=== PATIENT | female | born 1955 | race Caucasian/White ===

== ENCOUNTER 2018-09-20 09:36 | Emergency (ER) | payer OTHER, SELFPAY ==
[2018-09-20] MEDS ORDERED: ACETAMINOPHEN 325 MG TABLET ONE (11:03)
[2018-09-20 11:22] LABS: Absolute Lymphocytes (CBC) 0.8 K/uL (0.7-4.9); Absolute Monocytes 0.8 K/uL (0.1-1.3); Absolute Neutrophil 4.8 K/uL (1.8-8.0); Basophils % 0.7 % (0-1.3); Hematocrit 43.3 % (36.0-45.0); Lymphocytes % 12.5 % (15.3-44.8); MPV 7.8 fL (7.6-11.3); Monocytes % 11.9 % (3.3-12.3); RBC Red Blood Cell Count 4.78 M/uL (3.86-4.86)
[2018-09-20 11:37] LABS: Albumin 3.3 g/dL (3.4-5.0); Bilirubin Total 0.9 mg/dL (0.2-1.0); Potassium 3.4 mmol/L (3.5-5.1); Protein, Total 7.3 g/dL (6.4-8.2)
--- NOTE | 2018-09-20 11:56 | RAD REPORT ---
EXAM DESCRIPTION: RAD - Chest Pa And Lat (2 Views) - 09/20/2018 10:54 am CLINICAL HISTORY: cough, fever Chest pain. COMPARISON: CHEST SINGLE VIEW dated 05/06/2014; CHEST SINGLE VIEW dated 03/01/2009 FINDINGS: Mild patchy airspace opacity is present in the lingula, compatible with pneumonia. The hea rt is mildly prominent in size. No displaced fractures. IMPRESSION: Lingular pneumonia.
[2018-09-20] MEDS ORDERED: LEVALBUTEROL 1.25 MG/3 ML NEB ONE (12:38)
--- NOTE | 2018-09-20 12:38 | ER ---
Nurse's Notes [facility] Name: Cathy Romero Age: 62 yrs Sex: Female : 1955 Arrival Date: 09/20/2018 Time: 09:39 Bed 6 Private MD: Diagnosis: Pneumonia Presentation: 09/20 10:12 Presenting complaint: Patient states: on antibiotics (Augmentin) for URI since Friday, iw still having low grade fever, productive cough, was told by Dr. Benton to be evaluated in ER for possible pneumonia. Transition of care: patient was not received from another setting of care. Onset of symptoms was September 14, 2018. Risk Assessment: Do you want to hurt yourself or someone else? Patient reports no desire to harm self or others. Initial Sepsis Screen: Does the patient meet any 2 criteria? HR > 90 bpm. Does the patient have a suspected source of infection? Yes: Productive cough/pneumonia. Care prior to arrival: None. 10:12 Method Of Arrival: Ambulatory iw 10:12 Acuity: JAVAD 3 iw Historical: - Allergies: 10:16 No Known Allergies; iw - Home Meds: 10:16 lisinopril 10 mg Oral tab 1 tab once daily [Active]; sertraline 50 mg oral tab 1 tab iw once daily [Active]; bupropion HCl 100 mg Oral tab daily [Active]; - PMHx: 10:16 Hypertension; Anxiety; Depression; iw - PSHx: 10:16 Hernia repair; cyst removed from breast; iw - Immunization history:: Adult Immunizations up to date. - Social history:: Smoking status: Patient/guardian denies using tobacco. - Ebola Screening: : Patient negative for fever greater than or equal to 101.5 degrees Fahrenheit, and additional compatible Ebola Virus Disease symptoms Patient denies exposure to infectious person Patient denies travel to an Ebola-affected area in the 21 days before illness onset No symptoms or risks identified at this time. Screenin:00 Abuse screen: Denies threats or abuse. Denies injuries from another. Nutritional hb screening: No deficits noted. Tuberculosis screening: No symptoms or risk factors identified. Fall Risk None identified. Assessment: 11:00 General: Appears in no apparent distress. Behavior is calm, cooperative. Pain: Pain hb currently is 3 out of 10 on a pain scale. Neuro: Level of Consciousness is awake, alert, obeys commands, Oriented to person, place, time, situation. Cardiovascular: Heart tones S1 S2 present Capillary refill < 3 seconds Patient's skin is warm and dry. Respiratory: Airway is patent Respiratory effort is even, unlabored, Respiratory pattern is regular, symmetrical, Breath sounds with rhonchi Breath sounds with wheezes bilaterally. GI: No signs and/or symptoms were reported involving the gastrointestinal system. : No signs and/or symptoms were reported regarding the genitourinary system. EENT: No signs and/or symptoms were reported regarding the EENT system. Derm: Skin is intact, is healthy with good turgor, Skin is pink, warm \T\ dry. Musculoskeletal: No signs and/or symptoms reported regarding the musculoskeletal system. 11:58 Reassessment: Patient appears in no apparent distress at this time. Patient and/or hb family updated on plan of care and expected duration. Pain level reassessed. Patient is alert, oriented x 3, equal unlabored respirations, skin warm/dry/pink. 12:35 Reassessment: Patient appears in no apparent distress at this time. Patient and/or hb family updated on plan of care and expected duration. Pain level reassessed. Patient is alert, oriented x 3, equal unlabored respirations, skin warm/dry/pink. Vital Signs: 10:14 BP 155 / 74; Pulse 105; Resp 18 S; Temp 99.8(TE); Pulse Ox 96% on R/A; Weight 64.41 kg; iw Height 5 ft. 6 in. (167.64 cm); 11:00 BP 132 / 83; Pulse 94; Resp 17; Pulse Ox 95% on R/A; hb 11:59 BP 134 / 82; Pulse 88; Resp 16; Pulse Ox 99% on R/A; hb 10:14 Body Mass Index 22.92 (64.41 kg, 167.64 cm) iw ED Course: 09:39 Patient arrived in ED. tw3 10:07 Jordan Farooq PA is PHCP. jmm 10:07 Dave Alcaraz MD is Attending Physician. jmm 10:12 Cristal Ashley, RN is Primary Nurse. ph 10:14 Triage completed. iw 10:14 Arm band placed on. iw 10:50 Chest Pa And Lat (2 Views) XRAY In Process Unspecified. EDMS 11:00 Patient has correct armband on for positive identification. Bed in low position. Call hb light in reach. Side rails up X 1. 11:06 Inserted saline lock: 22 gauge in right antecubital area, using aseptic technique. hb Blood collected. 11:22 Primary Nurse role handed off by Cristal Ashley RN hb 11:22 Tanisha Payan, RN is Primary Nurse. hb 13:04 No provider procedures requiring assistance completed. IV discontinued, intact, hb bleeding controlled, No redness/swelling at site. Pressure dressing applied. Administered Medications: 11:02 Drug: Tylenol 650 mg Route: PO; hb 12:00 Follow up: Response: No adverse reaction hb 12:29 Drug: Xopenex (3) 1.25 mg Route: Inhalation; hb 12:57 Follow up: Response: No adverse reaction; Medication administered at discharge. hb Outcome: 12:38 Discharge ordered by . m 13:04 Discharged to home ambulatory. hb 13:04 Condition: stable 13:04 Discharge instructions given to patient, Instructed on discharge instructions, follow up and referral plans. medication usage, Demonstrated understanding of instructions, follow-up care, medications, Prescriptions given X 2. 13:04 Patient left the ED. hb Signatures: Dispatcher [employer] EDMS Jordan Farooq PA PA jmm Williams, Irene, RN RN Cristal Ashley, DANIEL RN Tanisha Payan RN RN Leny Kenney tw3 Corrections: (The following items were deleted from the chart) 12:36 11:59 BP 132 / 83; Pulse 88bpm; Resp 16bpm; Pulse Ox 99% RA; hb hb
--- NOTE | 2018-09-20 12:38 | EDPHYS ---
Physician Documentation [facility] Name: Cathy Romero Age: 62 yrs Sex: Female : 1955 Arrival Date: 09/20/2018 Time: 09:39 Bed 6 Private MD: ED Physician Dave Alcaraz HPI: 09/20 10:38 This 62 yrs old Female presents to ER via Ambulatory with complaints of jmm Cough,Fever. 10:38 The patient or guardian reports cough. Onset: The symptoms/episode began/occurred jmm gradually, 5 day(s) ago. Modifying factors: The symptoms are alleviated by nothing. the symptoms are aggravated by nothing. This is a 62 year old female with a history of htn that presents to the ED with complaints of cough, fever, body aches beginning 5 days ago. Patient has been taking Augmentin with no relief. . Historical: - Allergies: 10:16 No Known Allergies; iw - Home Meds: 10:16 lisinopril 10 mg Oral tab 1 tab once daily [Active]; sertraline 50 mg oral tab 1 tab iw once daily [Active]; bupropion HCl 100 mg Oral tab daily [Active]; - PMHx: 10:16 Hypertension; Anxiety; Depression; iw - PSHx: 10:16 Hernia repair; cyst removed from breast; iw - Immunization history:: Adult Immunizations up to date. - Social history:: Smoking status: Patient/guardian denies using tobacco. - Ebola Screening: : Patient negative for fever greater than or equal to 101.5 degrees Fahrenheit, and additional compatible Ebola Virus Disease symptoms Patient denies exposure to infectious person Patient denies travel to an Ebola-affected area in the 21 days before illness onset No symptoms or risks identified at this time. ROS: 10:38 Cardiovascular: Negative for chest pain, palpitations, and edema. jmm 10:38 Back: Negative for injury and pain, MS/Extremity: Negative for injury and deformity, Skin: Negative for injury, rash, and discoloration. 10:38 Constitutional: Positive for body aches, chills, fever. 10:38 Respiratory: Positive for cough. 10:38 All other systems are negative. Exam: 10:38 Head/Face: atraumatic. Eyes: EOMI, no conjunctival erythema appreciated ENT: Moist jmm Mucus Membranes Neck: Trachea midline, Supple Chest/axilla: Normal chest wall appearance and motion. 10:38 Abdomen/GI: Non distended, soft Back: Normal ROM Skin: General appearance color normal MS/ Extremity: Moves all extremities, no obvious deformities appreciated, no edema noted to the lower extremities Neuro: Awake and alert, normal gait 10:38 Constitutional: The patient appears in no acute distress, alert, awake. 10:38 Cardiovascular: Rate: normal, Rhythm: regular. 10:38 Respiratory: the patient does not display signs of respiratory distress, Respirations: normal, Breath sounds: wheezing: that is mild, is scattered. Vital Signs: 10:14 BP 155 / 74; Pulse 105; Resp 18 S; Temp 99.8(TE); Pulse Ox 96% on R/A; Weight 64.41 kg; iw Height 5 ft. 6 in. (167.64 cm); 11:00 BP 132 / 83; Pulse 94; Resp 17; Pulse Ox 95% on R/A; hb 11:59 BP 134 / 82; Pulse 88; Resp 16; Pulse Ox 99% on R/A; hb 10:14 Body Mass Index 22.92 (64.41 kg, 167.64 cm) iw MDM: 10:[address] [facility] 12:34 Data reviewed: vital signs, nurses notes. Counseling: I had a detailed discussion with raven the patient and/or guardian regarding: the historical points, exam findings, and any diagnostic results supporting the discharge/admit diagnosis, lab results, radiology results, the need for outpatient follow up, to return to the emergency department if symptoms worsen or persist or if there are any questions or concerns that arise at home. ED course: Patient is alert and non toxic in appearance in the ED. Patient is non hypoxic. No signs of resp distress appreciated in the ED. Patient is advised to follow up with pcp and otherwise given strict return precautions. Patient is otherwise given strict return precautions. Patient understood and agrees with the plan of care. . 09/20 10:34 Order name: Flu; Complete Time: 11:27 [facility] 09/20 10:35 Order name: CBC with Diff; Complete Time: 11:24 [facility] 09/20 10:34 Order name: Chest Pa And Lat (2 Views) XRAY; Complete Time: 12:15 [facility] 09/20 10:35 Order name: CMP; Complete Time: 11:43 [facility] 09/20 10:35 Order name: Procalcitonin; Complete Time: 11:59 [facility] 09/20 10:35 Order name: Saline Lock; Complete Time: 11:11 [facility] Administered Medications: 11:02 Drug: Tylenol 650 mg Route: PO; hb 12:00 Follow up: Response: No adverse reaction hb 12:29 Drug: Xopenex (3) 1.25 mg Route: Inhalation; hb 12:57 Follow up: Response: No adverse reaction; Medication administered at discharge. hb Disposition: 09/20/18 12:38 Discharged to Home. Impression: Pneumonia. - Condition is Stable. - Discharge Instructions: Community-Acquired Pneumonia, Adult. - Prescriptions for Zithromax Z- [place] 250 mg Oral Tablet - take 1 tablet by ORAL route as directed for 5 days Day 1 - take two (2) tablets one time. Day 2, 3, 4 , 5 take one (1) tablet once daily.; 6 tablet. Albuterol Sulfate 90 mcg/actuation - inhale 1-2 puff by INHALATION route every 4-6 hours; 1 Inhaler. - Medication Reconciliation Form, Thank You Letter, Antibiotic Education, Prescription Opioid Use form. - Follow up: Private Physician; When: 2 - 3 days; Reason: Recheck today's complaints, Continuance of care, Re-evaluation by your physician. Addendum: 09/24/2018 20:34 Co-signature as Attending Physician, Dave Alcaraz MD. g s Signatures: Dispatcher [employer] EDMS Jordan Farooq PA PA [facility] Sindi Hoang RN RN Tanisha Payan RN RN Dave Alcaraz MD MD Corrections: (The following items were deleted from the chart) 09/20 13:04 12:38 09/20/2018 12:38 Discharged to Home. Impression: Pneumonia. Condition is Stable. hb Forms are Medication Reconciliation Form, Thank You Letter, Antibiotic Education, Prescription Opioid Use. Follow up: Private Physician; When: 2 - 3 days; Reason: Recheck today's complaints, Continuance of care, Re-evaluation by your physician. [facility]
[2018-09-20 14:34] VITALS: TEMP 99.8
[2018-09-20 14:37] VITALS: BP 134/82; O2SAT 99
== END 2018-09-20 13:04 | disposition home or self-care (01) ==
LOC: ER 09:36
DX: J18.9 Pneumonia, unspecified organism (principal); I10 Essential (primary) hypertension; F41.9 Anxiety disorder, unspecified; F32.9 Major depressive disorder, single episode, unspecified
CPT/HCPCS: 36415; 71046; 80053; 84145; 85025; 87804; 99284

== ENCOUNTER 2018-09-23 09:50 | Emergency (ER) | payer SELFPAY ==
--- NOTE | 2018-09-23 10:55 | RAD REPORT ---
EXAM DESCRIPTION: RAD - Chest Pa And Lat (2 Views) - 09/23/2018 10:34 am CLINICAL HISTORY: COUGH Chest pain. COMPARISON: Chest Pa And Lat (2 Views) dated 09/20/2018; CHEST SINGLE VIEW dated 05/06/2014; CHEST SING LE VIEW dated 03/01/2009 FINDINGS: Ill-defined lingular opacity is again noted, but less prominent than on the recent compara tive chest radiograph. The heart is mildly prominent in size. No displaced fractures. IMPRESSION: Mild lingular infiltrate appears less prominent than on the comparative study.
[2018-09-23 11:15] LABS: Absolute Monocytes 0.4 K/uL (0.1-1.3); Absolute Neutrophil 3.7 K/uL (1.8-8.0); Basophils % 0.7 % (0-1.3); Eosinophils % 1.3 % (0-4.4); Hematocrit 41.4 % (36.0-45.0); RBC Red Blood Cell Count 4.59 M/uL (3.86-4.86)
[2018-09-23] MEDS ORDERED: Levofloxacin500mg IV 500 MG/100 ML BAG IV ONE (11:28)
[2018-09-23] MEDS ORDERED: IPRATROPIUM BROM 0.5MG/2.5ML ONE (11:28)
[2018-09-23] MEDS ORDERED: ALBUTEROL 2.5 MG/3 ML NEB SOL ONE (11:28)
[2018-09-23 11:33] LABS: Potassium 3.6 mmol/L (3.5-5.1)
--- NOTE | 2018-09-23 13:11 | ER ---
Nurse's Notes [facility] Name: Cathy Romero Age: 62 yrs Sex: Female : 1955 Arrival Date: 09/23/2018 Time: 09:54 Bed 4 Private MD: Verónica Benton K Diagnosis: Pneumonia, unspecified organism Presentation: 09/23 10:19 Presenting complaint: Patient states: sent by PCP for possible failed outpatient ss therapy for pneumonia. Transition of care: patient was not received from another setting of care. Onset of symptoms was September 15, 2018. Risk Assessment: Do you want to hurt yourself or someone else? Patient reports no desire to harm self or others. Initial Sepsis Screen: Does the patient meet any 2 criteria? No. Patient's initial sepsis screen is negative. Does the patient have a suspected source of infection? No. Patient's initial sepsis screen is negative. Care prior to arrival: None. 10:19 Method Of Arrival: Ambulatory ss 10:19 Acuity: JAVAD 3 ss Historical: - Allergies: 10:56 No Known Drug Allergies; ph - Home Meds: 10:56 bupropion HCl 100 mg Oral tab daily [Active]; lisinopril 10 mg Oral tab 1 tab once ph daily [Active]; sertraline 50 mg Oral tab 1 tab once daily [Active]; - PMHx: 10:56 Anxiety; Depression; Hypertension; ph - PSHx: 10:56 Hernia repair; cyst removed from breast; ph - Immunization history:: Adult Immunizations unknown. - Social history:: Smoking status: Patient/guardian denies using tobacco. - Ebola Screening: : No symptoms or risks identified at this time. Screenin:54 Abuse screen: Denies threats or abuse. Denies injuries from another. Nutritional ph screening: No deficits noted. Tuberculosis screening: No symptoms or risk factors identified. Fall Risk None identified. Assessment: 10:45 General: Appears in no apparent distress. comfortable, slender, well groomed, Behavior ph is calm, cooperative, appropriate for age, Reports fatigue for >3 days, Denies fever. Pain: Denies pain. Neuro: Level of Consciousness is awake, alert, obeys commands, Oriented to person, place, time, situation. Cardiovascular: Capillary refill < 3 seconds in bilateral fingers Patient's skin is warm and dry. Respiratory: Reports shortness of breath on exertion cough that is productive, Airway is patent Respiratory effort is even, unlabored, Respiratory pattern is regular, symmetrical. GI: Patient currently denies abdominal pain, diarrhea, nausea, vomiting. Derm: Skin is intact, is healthy with good turgor, Skin is pink, warm \T\ dry. Musculoskeletal: Circulation, motion, and sensation intact. Range of motion: intact in all extremities. 11:34 Reassessment: Patient appears in no apparent distress at this time. Patient and/or ph family updated on plan of care and expected duration. Pain level reassessed. Patient is alert, oriented x 3, equal unlabored respirations, skin warm/dry/pink. Pt resting quietly, VSS, awaiting lab results, family at bedside. 12:41 Reassessment: Patient appears in no apparent distress at this time. Patient and/or ph family updated on plan of care and expected duration. Pain level reassessed. Patient is alert, oriented x 3, equal unlabored respirations, skin warm/dry/pink. 14:03 Reassessment: Patient appears in no apparent distress at this time. Patient and/or ph family updated on plan of care and expected duration. Pain level reassessed. Patient is alert, oriented x 3, equal unlabored respirations, skin warm/dry/pink. ERP at bedside to speak w/ pt, pt d/c home w/ prescription for Levaquin, states that she will temporarily stop home meds that may cause adverse reaction, instructed to return for ED if symptoms worsen, ambulatory upon d/c from ED w/ daughter. Vital Signs: 10:27 BP 161 / 82; Pulse 83; Resp 18; Pulse Ox 95% on R/A; em1 11:20 BP 152 / 72; Pulse 78; Resp 18; Pulse Ox 96% on R/A; ph 11:29 Temp 97.1(A); ss 12:40 BP 148 / 76; Pulse 85; Resp 18; Temp 97.4(TE); Pulse Ox 96% on R/A; ph 14:05 BP 151 / 76; Pulse 87; Resp 18; Temp 97.8; Pulse Ox 95% on R/A; ph ED Course: 09:54 Patient arrived in ED. dl4 09:55 Verónica Benton MD is Private Physician. dl4 09:57 Lawanda Hopkins FNP-C is [facility]. kb 09:57 Hugh Guthrie MD is Attending Physician. kb 10:19 Arm band placed on right wrist. ss 10:21 Triage completed. ss 10:33 Chest Pa And Lat (2 Views) XRAY In Process Unspecified. EDMS 10:54 Cristal Ashley, RN is Primary Nurse. ph 10:57 Patient has correct armband on for positive identification. Placed in gown. Bed in low ph position. Call light in reach. Side rails up X2. Pulse ox on. NIBP on. Door closed. Noise minimized. Warm blanket given. 10:57 Inserted saline lock: 20 gauge in right forearm, using aseptic technique. ph 13:11 Verónica Benton MD is Referral Physician. kb 14:02 No provider procedures requiring assistance completed. IV discontinued, intact, ph bleeding controlled, No redness/swelling at site. Pressure dressing applied. Administered Medications: 11:23 Drug: LevaQUIN 500 mg Volume: 100 ml; Route: IVPB; Infused Over: 60 mins; Site: right ph forearm; 12:22 Follow up: Response: No adverse reaction; IV Status: Completed infusion; IV Intake: ph 100ml 11:24 Drug: Albuterol 2.5 mg Route: Inhalation; ph 12:22 Follow up: Response: No adverse reaction ph 11:24 Drug: AtroVENT Aerosol 0.5 mg Route: Inhalation; ph 12:22 Follow up: Response: No adverse reaction ph Intake: 12:22 IV: 100ml; Total: 100ml. ph Outcome: 13:11 Discharge ordered by . kb 14:03 Discharged to home ambulatory, with family. ph 14:03 Condition: good 14:03 Discharge instructions given to patient, Instructed on discharge instructions, follow up and referral plans. medication usage, Demonstrated understanding of instructions, follow-up care, medications, Prescriptions given X 1. 14:07 Patient left the ED. ph Signatures: Dispatcher [employer] EDNJ Lawanda Hopkins FNP-C FNP-Ckb Martinez, Eric em1 Naz Leonardo, DANIEL RN Cristal Ashley, DANIEL RN Shakeel Lopez dl4
--- NOTE | 2018-09-23 13:12 | EDPHYS ---
Physician Documentation [facility] Name: Cathy Romero Age: 62 yrs Sex: Female : 1955 Arrival Date: 09/23/2018 Time: 09:54 Bed 4 Private MD: Verónica Benton K ED Physician Hugh Guthrie HPI: 09/23 11:32 This 62 yrs old Female presents to ER via Ambulatory with complaints of kb Cough, Chest Congestion. 11:32 The patient or guardian reports cough, that is intermittent, described as moderate, kb with productive sputum, difficulty breathing. Onset: The symptoms/episode began/occurred 8 day(s) ago. Severity of symptoms: At their worst the symptoms were moderate, in the emergency department the symptoms are unchanged. Modifying factors: The symptoms are alleviated by nothing, the symptoms are aggravated by nothing. Associated signs and symptoms: The patient has no apparent associated signs or symptoms. The patient has experienced similar episodes in the past. The patient has been recently seen by a physician: The patient has been recently seen at the [facility] Emergency Department. Pt reports she started with cold symptoms 8 days ago, got worse so she came to ER 4 days ago. Was diagnosed with pneumonia and given zithromax. States she hasn't gotten any better so went to her PCP today and was told to come to ER for possible admission.. Historical: - Allergies: 10:56 No Known Drug Allergies; ph - Home Meds: 10:56 bupropion HCl 100 mg Oral tab daily [Active]; lisinopril 10 mg Oral tab 1 tab once ph daily [Active]; sertraline 50 mg Oral tab 1 tab once daily [Active]; - PMHx: 10:56 Anxiety; Depression; Hypertension; ph - PSHx: 10:56 Hernia repair; cyst removed from breast; ph - Immunization history:: Adult Immunizations unknown. - Social history:: Smoking status: Patient/guardian denies using tobacco. - Ebola Screening: : No symptoms or risks identified at this time. ROS: 11:31 Constitutional: Negative for fever, chills, and weight loss, ENT: Negative for injury, kb pain, and discharge, Neck: Negative for injury, pain, and swelling, Cardiovascular: Negative for chest pain, palpitations, and edema, Abdomen/GI: Negative for abdominal pain, nausea, vomiting, diarrhea, and constipation, MS/Extremity: Negative for injury and deformity, Skin: Negative for injury, rash, and discoloration, Neuro: Negative for headache, weakness, numbness, tingling, and seizure. 11:31 Respiratory: Positive for cough, shortness of breath, wheezing, Negative for dyspnea on exertion, hemoptysis, orthopnea, pleurisy. Exam: 11:31 Constitutional: This is a well developed, well nourished patient who is awake, alert, kb and in no acute distress. Head/Face: Normocephalic, atraumatic. ENT: Nares patent. No nasal discharge, no septal abnormalities noted. Tympanic membranes are normal and external auditory canals are clear. Oropharynx with no redness, swelling, or masses, exudates, or evidence of obstruction, uvula midline. Mucous membranes moist. Neck: Trachea midline, no thyromegaly or masses palpated, and no cervical lymphadenopathy. Supple, full range of motion without nuchal rigidity, or vertebral point tenderness. No Meningismus. Chest/axilla: Normal chest wall appearance and motion. Nontender with no deformity. No lesions are appreciated. Cardiovascular: Regular rate and rhythm with a normal S1 and S2. No gallops, murmurs, or rubs. Normal PMI, no JVD. No pulse deficits. Abdomen/GI: Soft, non-tender, with normal bowel sounds. No distension or tympany. No guarding or rebound. No evidence of tenderness throughout. Skin: Warm, dry with normal turgor. Normal color with no rashes, no lesions, and no evidence of cellulitis. MS/ Extremity: Pulses equal, no cyanosis. Neurovascular intact. Full, normal range of motion. Neuro: Awake and alert, GCS 15, oriented to person, place, time, and situation. Cranial nerves II-XII grossly intact. Motor strength 5/5 in all extremities. Sensory grossly intact. Cerebellar exam normal. Normal gait. 11:31 Respiratory: the patient does not display signs of respiratory distress, Respirations: normal, Breath sounds: rhonchi, that are moderate, are heard in the left upper lobe, left lower lobe, left posterior upper lobe and left posterior lower lobe, wheezing: inspiratory that is moderate, is heard in the left upper lobe, left lower lobe, left posterior upper lobe and left posterior lower lobe. Vital Signs: 10:27 BP 161 / 82; Pulse 83; Resp 18; Pulse Ox 95% on R/A; em1 11:20 BP 152 / 72; Pulse 78; Resp 18; Pulse Ox 96% on R/A; ph 11:29 Temp 97.1(A); ss 12:40 BP 148 / 76; Pulse 85; Resp 18; Temp 97.4(TE); Pulse Ox 96% on R/A; ph 14:05 BP 151 / 76; Pulse 87; Resp 18; Temp 97.8; Pulse Ox 95% on R/A; ph MDM: 10:10 Patient medically screened. kb 11:31 Data reviewed: vital signs, nurses notes. Data interpreted: Pulse oximetry: on room air kb is 95 %. Interpretation: acceptable. 12:11 ED course: Daughter states she is concerned because pt is "extremely weak." Pt kb ambulated from lobby, to restroom and back to room without difficulty or shortness of breath. Daughter states "She just won't rest at home and I think she will get better faster if she is admitted." Pt wants to go home. Daughter educated that pneumonia is improving based on CBC and chest x-ray. . 12:38 ED course: Dr Benton called to give more information about pt. Pt has been on kb augmentin as well as zithromax, almost done with both. Dr Benton believes pt is getting worse. States there is not much else do to outpatient and would like pt to be admitted. I updated Dr Benton on improving results and that I am having Dr Guthrie evaluate pt at this time. Pt's oxygen saturation has been 96-100% on room air. No respiratory distress noted. No increased work of breathing. Inspiratory wheezing and expiratory rhonchi still noted to left lung. . 12:55 Counseling: I had a detailed discussion with the patient and/or guardian regarding: the kb historical points, exam findings, and any diagnostic results supporting the discharge/admit diagnosis, lab results, radiology results, the need for outpatient follow up, a family practitioner, to return to the emergency department if symptoms worsen or persist or if there are any questions or concerns that arise at home. ED course: Dr Guthrie evaluated pt as well. Agrees with outpatient treatment. Will prescribe Levaquin for 10 days. Pt does not want steroids due to anxiety. Pt is happy about going home. Pt educated to return for shortness of breath or any other concerns. Pt states "I never have had shortness of breath.". 13:24 ED course: Discussed possible interactions between levaquin, wellbutrin and zoloft with kb pt and daughter. Pt will hold wellbutrin and zoloft while on levaquin.. 14:02 ED course: Spoke with Dr. Benton who states doesn't want her admitted if she has rn improved, was concerned how she looked in clinic. Checked with Sally Ling, casework manager, who states would meet inpatient criteria given pneumonia has not resolved, spoke with patient and family again, offered them admission if they are apprehensive about going home, patient wants to go home, states feels better, and wants to go home, does not want to stay in hospital, family member who is a nurse is going to stay with her, and return precautions given and understood. Now ambulatory without assistance or dyspnea, does not report dyspnea currently, and has agreed to hold wellbutrin/zoloft while taking levaquin. Patient is very upbeat, hopping around, and smiling, states "let me go home". . 09/23 10:27 Order name: CBC with Diff; Complete Time: 11:24 kb 09/23 10:27 Order name: Basic Metabolic Panel; Complete Time: 11:36 kb 09/23 10:08 Order name: Chest Pa And Lat (2 Views) XRAY; Complete Time: 11:02 kb 09/23 10:27 Order name: Lactate; Complete Time: 11:36 kb 09/23 10:27 Order name: Procalcitonin; Complete Time: 12:05 kb 09/23 10:27 Order name: Blood Culture Adult (2) kb 09/23 10:27 Order name: IV Start; Complete Time: 11:09 kb Administered Medications: 11:23 Drug: LevaQUIN 500 mg Volume: 100 ml; Route: IVPB; Infused Over: 60 mins; Site: right ph forearm; 12:22 Follow up: Response: No adverse reaction; IV Status: Completed infusion; IV Intake: ph 100ml 11:24 Drug: Albuterol 2.5 mg Route: Inhalation; ph 12:22 Follow up: Response: No adverse reaction ph 11:24 Drug: AtroVENT Aerosol 0.5 mg Route: Inhalation; ph 12:22 Follow up: Response: No adverse reaction ph Disposition: 16:30 Co-signature as Attending Physician, Hugh Guthrie MD. rn Disposition: 09/23/18 13:11 Discharged to Home. Impression: Pneumonia, unspecified organism. - Condition is Stable. - Discharge Instructions: Community-Acquired Pneumonia, Adult, [id number]. - Prescriptions for Levaquin 500 mg Oral Tablet - take 1 tablet by ORAL route once daily for 10 days; 10 tablet. - Medication Reconciliation Form, Thank You Letter, Antibiotic Education, Prescription Opioid Use form. - Follow up: Emergency Department; When: As needed; Reason: Worsening of condition. Follow up: Verónica Benton MD; When: 2 - 3 days; Reason: Recheck today's complaints, Continuance of care, Re-evaluation by your physician. Signatures: Dispatcher [employer] EDCA Lawanda Hopkins, HYDROELECTRIC POWERPLANT SUPERVISOR-C HYDROELECTRIC POWERPLANT SUPERVISOR-Ckb Hugh Guthrie MD MD rn AshleyCristal RN RN ph Corrections: (The following items were deleted from the chart) 14:07 13:11 09/23/2018 13:11 Discharged to Home. Impression: Pneumonia, unspecified organism. ph Condition is Stable. Forms are Medication Reconciliation Form, Thank You Letter, Antibiotic Education, Prescription Opioid Use. Follow up: Emergency Department; When: As needed; Reason: Worsening of condition. Follow up: Verónica Benton; When: 2 - 3 days; Reason: Recheck today's complaints, Continuance of care, Re-evaluation by your physician. kb
[2018-09-23 17:24] VITALS: BP 151/76; TEMP 97.8; O2SAT 95
== END 2018-09-23 14:07 | disposition home or self-care (01) ==
LOC: ER 09:50
DX: J18.9 Pneumonia, unspecified organism (principal); I10 Essential (primary) hypertension; F41.8 Other specified anxiety disorders
CPT/HCPCS: 36415; 71046; 80048; 83605; 84145; 85025; 87040; 96365; 99284

== ENCOUNTER 2021-04-27 09:03 | Emergency (ER) | payer OTHER ==
[2021-04-27 10:49] LABS: SARS-COV-2 RT PCR POSITIVE (NEGATIVE)
--- NOTE | 2021-04-27 10:54 | ER ---
Nurse's Notes [facility] Name: Cathy Romero Age: 65 yrs Sex: Female : 1955 Arrival Date: 04/27/2021 Time: 09:08 Bed 17 Private MD: Diagnosis: SARS-associated coronavirus as the cause of diseases classified elsewhere Presentation: 04/27 09:28 Chief complaint: Patient states: sore throat, and dry cough x 2-3 days. Body aches that ss began yesterday. Coronavirus screen: Client presents with at least one sign or symptom that may indicate coronavirus-19. Ebola Screen: Patient denies exposure to infectious person. Patient denies travel to an Ebola-affected area in the 21 days before illness onset. Initial Sepsis Screen: Does the patient meet any 2 criteria? No. Patient's initial sepsis screen is negative. Does the patient have a suspected source of infection? No. Patient's initial sepsis screen is negative. Risk Assessment: Do you want to hurt yourself or someone else? Patient reports no desire to harm self or others. Onset of symptoms. :28 Method Of Arrival: Ambulatory ss 09:28 Acuity: JAVAD 4 ss Historical: - Allergies: 10:36 Codeine; "headache, vomiting"; tw2 - PMHx: 09:20 Anxiety; Depression; Hypertension; ss - Immunization history:: Client reports having NOT received the Covid vaccine. - Social history:: Smoking status: Patient denies any tobacco usage or history of. Screenin:33 Abuse screen: Denies threats or abuse. Nutritional screening: No deficits noted. tw2 Tuberculosis screening: No symptoms or risk factors identified. Fall Risk Secondary diagnosis (15 points) impaired mobility. Assessment: 11:23 Reassessment: Patient appears in no apparent distress at this time. No changes from tw2 previously documented assessment. Patient and/or family updated on plan of care and expected duration. Pain level reassessed. Patient is alert, oriented x 3, equal unlabored respirations, skin warm/dry/pink. Vital Signs: 09:28 BP 167 / 86; Pulse 96; Resp 16; Temp 98.7(TE); Pulse Ox 99% on R/A; Weight 78.02 kg; ss Height 5 ft. 7 in. (170.18 cm); Pain 0/10; 11:23 BP 153 / 76; Pulse 89; Resp 17; Pulse Ox 98% on R/A; tw2 09:28 Body Mass Index 26.94 (78.02 kg, 170.18 cm) ED Course: 09:08 Patient arrived in ED. ds1 09:11 Geovany Aguilar PA is PHCP. jr8 09:11 Mark Mckeon MD is Attending Physician. jr8 09:11 Bed in low position. Call light in reach. Pulse ox on. NIBP on. tw2 09:31 Triage completed. 09:32 Laura Mejía, RN is Primary Nurse. tw2 09:36 Arm band placed on. tw2 Administered Medications: No medications were administered Outcome: 10:53 Discharge ordered by . 11:23 Discharged to home ambulatory. tw2 11:23 Condition: stable 11:23 Discharge instructions given to patient, Instructed on discharge instructions, follow up and referral plans. no driving heavy equipment, medication usage, Demonstrated understanding of instructions, follow-up care, medications, Prescriptions given X 2. 11:24 Patient left the ED. tw2 Signatures: Saadia Barrera ds1 Naz Leonardo, RN RN Geovany Aguilar PA PA jr8 Laura Mejía RN RN tw2
--- NOTE | 2021-04-27 10:54 | EDPHYS ---
Physician Documentation [facility] Name: Cathy Romero Age: 65 yrs Sex: Female : 1955 Arrival Date: 04/27/2021 Time: 09:08 Bed 17 Private MD: ED Physician Mark Mckeon HPI: 04/27 09:40 This 65 yrs old Female presents to ER via Ambulatory with complaints of Sore Throat, jr8 Cough. 09:40 Severity of symptoms: At their worst the symptoms were mild, in the emergency jr8 department the symptoms are unchanged. Modifying factors: The symptoms are alleviated by nothing, the symptoms are aggravated by nothing. The patient has not experienced similar symptoms in the past. The patient has not recently seen a physician. Patient stated that she was in large crowd three days ago. Now with URI like symptoms including, congestion, cough, sore throat. Denies GI symptoms . Historical: - Allergies: 10:36 Codeine; "headache, vomiting"; tw2 - PMHx: 09:20 Anxiety; Depression; Hypertension; ss - Immunization history:: Client reports having NOT received the Covid vaccine. - Social history:: Smoking status: Patient denies any tobacco usage or history of. ROS: 09:40 Constitutional: Positive for body aches, fatigue. jr8 09:40 ENT: Positive for rhinorrhea, sinus congestion, sore throat. 09:40 Respiratory: Positive for cough, Negative for shortness of breath, sputum production, wheezing. 09:40 All other systems are negative. Exam: 09:40 Constitutional: This is a well developed, well nourished patient who is awake, alert, jr8 and in no acute distress. 09:40 Eyes: Pupils equal round and reactive to light, extra-ocular motions intact. Lids and lashes normal. Conjunctiva and sclera are non-icteric and not injected. Cornea within normal limits. Periorbital areas with no swelling, redness, or edema. ENT: Nares patent. No nasal discharge, no septal abnormalities noted. Tympanic membranes are normal and external auditory canals are clear. Oropharynx with no redness, swelling, or masses, exudates, or evidence of obstruction, uvula midline. Mucous membranes moist. Neck: Trachea midline, no thyromegaly or masses palpated, and no cervical lymphadenopathy. Supple, full range of motion without nuchal rigidity, or vertebral point tenderness. No Meningismus. Respiratory: Lungs have equal breath sounds bilaterally, clear to auscultation and percussion. No rales, rhonchi or wheezes noted. No increased work of breathing, no retractions or nasal flaring. Abdomen/GI: Soft, non-tender, with normal bowel sounds. No distension or tympany. No guarding or rebound. No evidence of tenderness throughout. Back: No spinal tenderness. No costovertebral tenderness. Full range of motion. Skin: Warm, dry with normal turgor. Normal color with no rashes, no lesions, and no evidence of cellulitis. MS/ Extremity: Pulses equal, no cyanosis. Neurovascular intact. Full, normal range of motion. Neuro: Awake and alert, GCS 15, oriented to person, place, time, and situation. Cranial nerves II-XII grossly intact. Motor strength 5/5 in all extremities. Sensory grossly intact. Cerebellar exam normal. Normal gait. 09:40 Cardiovascular: Rate: tachycardic, Rhythm: regular, Pulses: Pulses are 2+ in right radial artery and left radial artery. Heart sounds: normal, normal S1and S2, no S3 or S4, no murmur, no rub, no gallop, Edema: is not appreciated. Vital Signs: 09:28 BP 167 / 86; Pulse 96; Resp 16; Temp 98.7(TE); Pulse Ox 99% on R/A; Weight 78.02 kg; ss Height 5 ft. 7 in. (170.18 cm); Pain 0/10; 11:23 BP 153 / 76; Pulse 89; Resp 17; Pulse Ox 98% on R/A; tw2 09:28 Body Mass Index 26.94 (78.02 kg, 170.18 cm) ss MDM: 09:12 Patient medically screened. 8 10:53 Data reviewed: vital signs, nurses notes, lab test result(s), and as a result, I will jr8 discharge patient. Data interpreted: Pulse oximetry: on room air is 99 %. Interpretation: normal. Counseling: I had a detailed discussion with the patient and/or guardian regarding: the historical points, exam findings, and any diagnostic results supporting the discharge/admit diagnosis, lab results, the need for outpatient follow up, a family practitioner, to return to the emergency department if symptoms worsen or persist or if there are any questions or concerns that arise at home. 04/27 09:29 Order name: COVID-19/FLU A+B (Document "Date of Onset" if Symptomatic); Complete Time: jr8 10:53 Administered Medications: No medications were administered Disposition Summary: 04/27/21 10:53 Discharge Ordered Location: Home jr8 Problem: new jr8 Symptoms: have improved jr8 Condition: Stable jr8 Diagnosis - SARS-associated coronavirus as the cause of diseases classified elsewhere jr8 Followup: jr8 - With: Private Physician - When: 7 - 10 days - Reason: Recheck today's complaints, Continuance of care, Re-evaluation by your physician Discharge Instructions: - Discharge Summary Sheet jr8 - COVID-19 jr8 - 10 Things You Can Do to Manage Your COVID-19 Symptoms at Home - [facility] jr8 Forms: - Medication Reconciliation Form jr8 - Thank You Letter jr8 - Antibiotic Education jr8 - Prescription Opioid Use jr8 Prescriptions: - promethazine-DM 6.25-15 mg/5 mL Oral syrup - take 5 milliliter by ORAL route every 4-6 hours as needed, not to exceed 30 mL jr8 in 24 hours; 110 milliliter; Refills: 0, Product Selection Permitted - Tessalon Perles 100 mg Oral Capsule - take 1 capsule by ORAL route every 8 hours As needed; 15 capsule; Refills: 0, jr8 Product Selection Permitted Addendum: 04/29/2021 18:47 Co-signature as Attending Physician, Mark Mckeon MD. m a2 Signatures: Dispatcher [employer] Naz Liang RN RN Geovany Aguilar PA PA jr8 Laura Mejía RN RN tw2 Mark Mckeon MD MD ma2
[2021-04-27 11:29] VITALS: TEMP 98.7
[2021-04-27 11:30] VITALS: BP 153/76; O2SAT 98
== END 2021-04-27 11:24 | disposition home or self-care (01) ==
LOC: ER 09:03
DX: U07.1 COVID-19 (principal); I10 Essential (primary) hypertension; Z88.5 Allergy status to narcotic agent
CPT/HCPCS: 0240U; 99283

== ENCOUNTER 2021-07-08 13:30 | Emergency (ER) | payer OTHER ==
[2021-07-08 14:58] LABS: SARS-COV-2 RT PCR NEGATIVE (NEGATIVE)
--- NOTE | 2021-07-08 15:57 | RAD REPORT ---
EXAM DESCRIPTION: RAD - Chest Single View - 07/08/2021 2:54 pm CLINICAL HISTORY: COUGH COMPARISON: Two view chest 09/23/2018 TECHNIQUE: AP portable chest image was obtained 07/08/2021 2:54 pm . FINDINGS: Patient has baseline chronic interstitial lung disease. Interstitial markings are most pro minent in the lung bases, right greater than left. No dense consolidation. Heart and vasculature are normal. No measurable pleural effusion and no pneumothorax. No acute bony abnormality seen. No acute aortic findings suspected. IMPRESSION: Suspected minimal interstitial edema or infiltrate superimposed on chronic interstitial lung disease.
--- NOTE | 2021-07-08 16:04 | ER ---
Nurse's Notes [facility] Name: Cathy Romero Age: 65 yrs Sex: Female : 1955 Arrival Date: 07/08/2021 Time: 13:31 Bed 20 Private MD: Louis Mercedes V Diagnosis: Pneumonia, unspecified organism Presentation: 07/08 13:38 Chief complaint: Patient states: Cough x 2 days, check O2 at home and it was 94%. jl7 Coronavirus screen: congestion, cough unrelated to allergies, Client presents with at least one sign or symptom that may indicate coronavirus-19. Standard/surgical mask placed on the client. Provider contacted for isolation considerations. Ebola Screen: No symptoms or risks identified at this time. Initial Sepsis Screen: Does the patient meet any 2 criteria? No. Patient's initial sepsis screen is negative. Does the patient have a suspected source of infection? No. Patient's initial sepsis screen is negative. Risk Assessment: Do you want to hurt yourself or someone else? Patient reports no desire to harm self or others. Onset of symptoms was July 06, 2021. 13:38 Method Of Arrival: Ambulatory [facility] 13:38 Acuity: JAVAD 3 jl7 Triage Assessment: 13:40 General: Appears in no apparent distress. uncomfortable, Behavior is calm, cooperative, jl7 appropriate for age. Pain: Denies pain. Neuro: Level of Consciousness is awake, alert, obeys commands, Oriented to person, place, time, situation. Cardiovascular: Patient's skin is warm and dry. Respiratory: Reports cough that is Airway is patent Respiratory effort is even, unlabored, Respiratory pattern is regular, symmetrical. Derm: Skin is pink, warm \\T\\ dry. Historical: - Allergies: 13:40 Codeine; "headache, vomiting"; jl7 - Home Meds: 13:40 sertraline oral [Active]; Wellbutrin Oral [Active]; jl7 - PMHx: 13:40 Anxiety; Depression; Hypertension; jl7 - PSHx: 13:40 Repair of inguinal hernia; jl7 - Immunization history:: Client reports having NOT received the Covid vaccine. Flu vaccine is not up to date. - Social history:: Smoking status: Patient denies any tobacco usage or history of. Screenin:56 Abuse screen: Denies threats or abuse. Nutritional screening: No deficits noted. jh6 Tuberculosis screening: No symptoms or risk factors identified. Fall Risk None identified. Assessment: 13:55 General: Appears in no apparent distress. Behavior is calm, cooperative. Respiratory: jh6 Reports cough that is non-productive, hacking, persistent since 2 days Airway is patent Respiratory effort is even, unlabored, Respiratory pattern is regular, symmetrical. Vital Signs: 13:38 BP 152 / 89; Pulse 96; Resp 19; Temp 98.7(O); Pulse Ox 98% on R/A; Weight 78.02 kg; jl7 Height 5 ft. 7 in. (170.18 cm); Pain 0/10; 15:52 BP 180 / 91; Pulse 96; Resp 15; Pulse Ox 99% ; jl7 13:38 Body Mass Index 26.94 (78.02 kg, 170.18 cm) 7 ED Course: 13:31 Patient arrived in ED. as 13:32 Andrade Evangelista MD is Private Physician. as 13:32 Louis Mercedes MD is Private Physician. as 13:36 [facility] Hopkins [facility]C [facility]. kb 13:37 Hugh Guthrie MD is Attending Physician. kb 13:40 Triage completed. jl7 13:40 Arm band placed on right wrist. 7 13:54 Yuni Morales, RN is Primary Nurse. 6 13:56 Bed in low position. Call light in reach. Side rails up X 1. Adult w/ patient. jh6 13:56 COVID swab sent to lab. 6 14:20 X-ray(s) taken. 6 14:53 Chest Single View XRAY In Process Unspecified. EDMS 16:23 Patient did not have IV access during this emergency room visit. jh6 16:24 No provider procedures requiring assistance completed. jh6 Administered Medications: No medications were administered Outcome: 16:03 Discharge ordered by . kb 16:23 Discharged to home ambulatory. jh6 16:23 Condition: good 16:23 Discharge instructions given to patient, family, Instructed on discharge instructions, follow up and referral plans. Demonstrated understanding of instructions, follow-up care, medications. 16:24 Patient left the ED. [facility] Signatures: Dispatcher [employer] EDMA Lawanda Hopkins FNP-C FNP-Leisa Hernandez Jahala, RN RN jl7 Yuni Morales, RN RN jh6
--- NOTE | 2021-07-08 16:04 | EDPHYS ---
Physician Documentation [facility] Name: Cathy Romero Age: 65 yrs Sex: Female : 1955 Arrival Date: 07/08/2021 Time: 13:31 Bed 20 Private MD: Louis Mercedes V ED Physician Hugh Guthrie HPI: 07/08 15:53 This 65 yrs old Female presents to ER via Ambulatory with complaints of Chest kb Congestion, low o2. 15:53 The patient or guardian reports cough, that is intermittent, described as mild. Onset: kb The symptoms/episode began/occurred 2 day(s) ago. Severity of symptoms: At their worst the symptoms were moderate, in the emergency department the symptoms are unchanged. Modifying factors: The symptoms are alleviated by nothing, the symptoms are aggravated by nothing. Associated signs and symptoms: Pertinent positives: rhinorrhea, Pertinent negatives: chest pain, diarrhea, ear ache, fever, nausea, sore throat, vomiting. The patient has not experienced similar symptoms in the past. The patient has not recently seen a physician. Pt reports cough, congestion and runny nose for 2 days. Sat was 94% prior to arrival so she came in. Historical: - Allergies: 13:40 Codeine; "headache, vomiting"; jl7 - Home Meds: 13:40 sertraline oral [Active]; Wellbutrin Oral [Active]; jl7 - PMHx: 13:40 Anxiety; Depression; Hypertension; jl7 - PSHx: 13:40 Repair of inguinal hernia; jl7 - Immunization history:: Client reports having NOT received the Covid vaccine. Flu vaccine is not up to date. - Social history:: Smoking status: Patient denies any tobacco usage or history of. ROS: 15:53 Constitutional: Negative for fever, chills, and weight loss. kb 15:53 ENT: Positive for rhinorrhea, sinus congestion. 15:53 Respiratory: Positive for cough. 15:53 All other systems are negative. Exam: 15:53 Constitutional: This is a well developed, well nourished patient who is awake, alert, kb and in no acute distress. Head/Face: Normocephalic, atraumatic. ENT: Moist Mucous membranes Cardiovascular: Regular rate and rhythm with a normal S1 and S2. No gallops, murmurs, or rubs. No pulse deficits. Respiratory: Respirations even and unlabored. No increased work of breathing. Talking in full sentences Skin: Warm, dry with normal turgor. Normal color. MS/ Extremity: Pulses equal, no cyanosis. Neurovascular intact. Full, normal range of motion. Neuro: Awake and alert, GCS 15, oriented to person, place, time, and situation. Moves all extremities. Normal gait. Psych: Awake, alert, with orientation to person, place and time. Behavior, mood, and affect are within normal limits. Vital Signs: 13:38 BP 152 / 89; Pulse 96; Resp 19; Temp 98.7(O); Pulse Ox 98% on R/A; Weight 78.02 kg; jl7 Height 5 ft. 7 in. (170.18 cm); Pain 0/10; 15:52 BP 180 / 91; Pulse 96; Resp 15; Pulse Ox 99% ; jl7 13:38 Body Mass Index 26.94 (78.02 kg, 170.18 cm) jl7 MDM: 13:37 Patient medically screened. kb 15:52 Data reviewed: vital signs, nurses notes. Data interpreted: Pulse oximetry: on room air kb is 98 %. Interpretation: normal. Counseling: I had a detailed discussion with the patient and/or guardian regarding: the historical points, exam findings, and any diagnostic results supporting the discharge/admit diagnosis, lab results, radiology results, the need for outpatient follow up, a family practitioner, to return to the emergency department if symptoms worsen or persist or if there are any questions or concerns that arise at home. 07/08 13:42 Order name: COVID-19/FLU A+B (Document "Date of Onset" if Symptomatic); Complete Time: kb 15:02 07/08 13:42 Order name: Chest Single View XRAY; Complete Time: 15:57 kb Administered Medications: No medications were administered Disposition: 18:54 Co-signature as Attending Physician, Hugh Guthrie MD I agree with the assessment and rn plan of care. Attestation: The patient's history, exam findings, diagnostics, and a summary of any interventions or procedures was reviewed in detail with Lawanda CHUN. Disposition Summary: 07/08/21 16:03 Discharge Ordered Location: Home kb Condition: Stable kb Diagnosis - Pneumonia, unspecified organism kb Followup: kb - With: Emergency Department - When: As needed - Reason: Worsening of condition Followup: kb - With: Private Physician - When: 2 - 3 days - Reason: Recheck today's complaints, Continuance of care, Re-evaluation by your physician Discharge Instructions: - Discharge Summary Sheet kb - Community-Acquired Pneumonia, Adult, [id number] kb Forms: - Medication Reconciliation Form kb - Thank You Letter kb - Antibiotic Education kb - Prescription Opioid Use kb Prescriptions: - albuterol sulfate 90 mcg/actuation Inhalation HFA aerosol inhaler - inhale 2 puff by INHALATION route every 4-6 hours As needed; 1 Inhaler; kb Refills: 0, Product Selection Permitted - Prednisone 20 mg Oral Tablet - take 1 tablet by ORAL route once daily for 5 days; 5 tablet; Refills: 0, kb Product Selection Permitted - Zithromax 500 mg Oral Tablet - take 1 tablet by ORAL route once daily for 5 days; 5 tablet; Refills: 0, kb Product Selection Permitted Signatures: Dispatcher [employer] Lawanda Gomez, FRESH FOODS CLERK-C FRESH [employer]ODS CLERK-Hugh Hurley MD MD rn Mani Ruff RN RN jl7
[2021-07-08 16:33] VITALS: TEMP 98.7
[2021-07-08 16:34] VITALS: BP 180/91; O2SAT 99
== END 2021-07-08 16:24 | disposition home or self-care (01) ==
LOC: ER 13:30
DX: J18.9 Pneumonia, unspecified organism (principal); Z20.822 Contact with and (suspected) exposure to COVID-19; F41.8 Other specified anxiety disorders; I10 Essential (primary) hypertension; Z88.5 Allergy status to narcotic agent
CPT/HCPCS: 0240U; 71045; 99283

== ENCOUNTER 2022-05-12 12:37 | Emergency (ER) | payer OTHER ==
[2022-05-12] MEDS ORDERED: FAMOTIDINE 20 MG/2 ML VIAL IV ONE (13:18)
[2022-05-12] MEDS ORDERED: dexAMETHasone 10 MG/ML VIAL ONE (13:18)
--- NOTE | 2022-05-12 13:51 | RAD REPORT ---
EXAM DESCRIPTION: CT - Spine Lumbar Wo Con - 05/12/2022 1:42 pm CLINICAL HISTORY: Radiculopathy. low back pain, sciatica COMPARISON: No comparisons TECHNIQUE: Axial noncontrast CT imaging of the lumbar spine was performed with coronal and sagittal re-formatted images. All CT scans are performed using dose optimization technique as appropriate and may include automated exposure control or mA/KV adjustment according to patient size. FINDINGS: No acute lumbar spine fracture seen. No aggressive marrow pattern or malalignment. Paraspinal tissues are normal in thickness. No paraspinal abscess or hematoma seen. Mild posterior disc bulge with facet hypertrophy lower lumbar levels. Moderate spondylosis at L4-5 wi th mild spinal canal stenosis. IMPRESSION: No acute abnormality detected. Mild to moderate lower lumbar degenerative spondylosis no victor hugo. The findings appear most significant at L4-5 with [id number] spinal canal stenosis. Consider MRI follow-up for assessment of disc disease if clinically desired.
--- NOTE | 2022-05-12 14:23 | ER ---
Nurse's Notes [facility] Name: Cathy Romero Age: 66 yrs Sex: Female : 1955 Arrival Date: 05/12/2022 Time: 12:38 Bed 19 Private MD: Diagnosis: Sciatica Presentation: 05/12 12:46 Chief complaint: Patient states: "My low back hurts and if I sit too long my legs go hb numb or if I stand too long it feels like my legs are going to give out, I have good pain medication at home but it hurts but doesn't hurt, I feel like it is inflamed so I didn't take anything.". Coronavirus screen: At this time, the client does not indicate any symptoms associated with coronavirus-19. Ebola Screen: No symptoms or risks identified at this time. Initial Sepsis Screen: Does the patient meet any 2 criteria? No. Patient's initial sepsis screen is negative. Does the patient have a suspected source of infection? No. Patient's initial sepsis screen is negative. Risk Assessment: Do you want to hurt yourself or someone else? Patient reports no desire to harm self or others. Onset of symptoms was May 12, 2022. 12:46 Method Of Arrival: Ambulatory hb 12:46 Acuity: JAVAD 4 hb Historical: - Allergies: 12:48 Codeine; "headache, vomiting"; hb - PMHx: 12:48 Anxiety; Depression; Hypertension; hb - PSHx: 12:48 Repair of inguinal hernia; hb - Immunization history:: Adult Immunizations up to date. - Social history:: Smoking status: Patient denies any tobacco usage or history of. Screenin:36 [facility] ED Fall Risk Assessment (Adult) History of falling in the last 3 months, kr3 including since admission No falls in past 3 months (0 pts) Confusion or Disorientation No (0 pts) Intoxicated or Sedated No (0 pts) Impaired Gait No (0 pts) Mobility Assist Device Used No (0 pt) Altered Elimination No (0 pt) Score/Fall Risk Level 0 - 2 = Low Risk. Abuse screen: Denies threats or abuse. Nutritional screening: No deficits noted. Tuberculosis screening: No symptoms or risk factors identified. Assessment: 13:37 General: Appears in no apparent distress. comfortable, Behavior is calm, cooperative, kr3 appropriate for age. Pain: Complains of pain in back. Neuro: Level of Consciousness is awake, alert, obeys commands, Oriented to person, place, time, situation. Cardiovascular: Patient's skin is warm and dry. Respiratory: No deficits noted. GI: No signs and/or symptoms were reported involving the gastrointestinal system. : No signs and/or symptoms were reported regarding the genitourinary system. EENT: No signs and/or symptoms were reported regarding the EENT system. Derm: Skin is intact. Musculoskeletal: No signs and/or symptoms reported regarding the musculoskeletal system. 14:35 Reassessment: Patient appears in no apparent distress at this time. Patient is alert, kr3 oriented x 3, equal unlabored respirations, skin warm/dry/pink. Vital Signs: 12:46 BP 137 / 61; Pulse 83; Resp 16; Temp 97.1; Pulse Ox 100% on R/A; Weight 73.03 kg; hb Height 5 ft. 7 in. (170.18 cm); Pain 9/10; 13:55 BP 137 / 76; Pulse 74; Resp 17; Pulse Ox 99% on R/A; kr3 14:35 BP 136 / 74; Pulse 81; Resp 17; Pulse Ox 98% on R/A; kr3 12:46 Body Mass Index 25.22 (73.03 kg, 170.18 cm) hb ED Course: 12:38 Patient arrived in ED. as 12:40 Sendy Lemus, DANIEL is Primary Nurse. kr3 12:45 Jordan Farooq PA is PHCP. [facility] 12:45 Hugh Guthrie MD is Attending Physician. [facility] 12:48 Triage completed. hb 12:48 Arm band placed on. hb 12:50 Bed in low position. Call light in reach. Side rails up X 1. kr3 12:50 Inserted saline lock: 22 gauge in left antecubital area, using aseptic technique. kr3 13:43 CT Lumbar Spine Wo Con In Process Unspecified. EDMS 14:36 No provider procedures requiring assistance completed. IV discontinued, intact, kr3 bleeding controlled, No redness/swelling at site. Pressure dressing applied. Administered Medications: 13:25 Drug: Pepcid (famotidine) 10 mg Route: IVP; Site: left antecubital; kr3 14:38 Follow up: Response: No adverse reaction kr3 13:33 Drug: Decadron - Dexamethasone 10 mg Route: IVP; Site: left antecubital; kr3 14:38 Follow up: Response: No adverse reaction kr3 Medication: 14:38 VIS not applicable for this client. kr3 Outcome: 14:22 Discharge ordered by MD. carbajal 14:37 Discharged to home ambulatory. kr3 14:37 Condition: stable 14:37 Discharge instructions given to patient, Instructed on discharge instructions, follow up and referral plans. medication usage, Demonstrated understanding of instructions, follow-up care, medications, Prescriptions given X 2. 14:38 Patient left the ED. kr3 Signatures: Dispatcher [employer] EDMS Jordan Farooq PA PA jmm Martinez, Amelia as Baxter, Heather, RN RN hb Reid, Kelley, RN RN kr3 Corrections: (The following items were deleted from the chart) 14:37 12:45 Inserted saline lock: 22 gauge in left antecubital area, using aseptic technique. kr3 kr3
--- NOTE | 2022-05-12 14:23 | EDPHYS ---
Physician Documentation [facility] Name: Cathy Romero Age: 66 yrs Sex: Female : 1955 Arrival Date: 05/12/2022 Time: 12:38 Bed 19 Private MD: ED Physician Hugh Guthrie HPI: 05/12 12:49 This 66 yrs old Female presents to ER via Ambulatory with complaints of Back Pain. jmm 12:49 The patient presents with pain that is acute, with no known mechanism of injury. Onset: jmm The symptoms/episode began/occurred gradually, 1 day(s) ago. The pain radiates to the left leg. Associated signs and symptoms: Pertinent positives: numbness, Pertinent negatives:. This is a 66 year old female with a history, anxiety, htn, that presents to the ED with complaints of left leg numbness/pain which radiates from the lower back, to the buttocks, down the mid thigh. Denies fever. Denies injury but states performed house cleaning with a bracing belt yesterday. Denies bowel or bladder issues. . Historical: - Allergies: 12:48 Codeine; "headache, vomiting"; hb - PMHx: 12:48 Anxiety; Depression; Hypertension; hb - PSHx: 12:48 Repair of inguinal hernia; hb - Immunization history:: Adult Immunizations up to date. - Social history:: Smoking status: Patient denies any tobacco usage or history of. ROS: 12:49 Constitutional: Negative for fever, chills, and weight loss, Cardiovascular: Negative jmm for chest pain, palpitations, and edema, Respiratory: Negative for shortness of breath, cough, wheezing, and pleuritic chest pain. 12:49 MS/extremity: Positive for pain. 12:49 All other systems are negative. Exam: 12:49 Constitutional: This is a well developed, well nourished patient who is awake, alert, jmm and in no acute distress. Head/Face: atraumatic. Eyes: EOMI, no conjunctival erythema appreciated ENT: Moist Mucus Membranes Neck: Trachea midline, Supple Chest/axilla: Normal chest wall appearance and motion. Cardiovascular: Regular rate and rhythm. No edema appreciated Respiratory: Normal respirations, no respiratory distress appreciated Abdomen/GI: Non distended 12:49 Back: pain, that is mild, of the lumbar area. 12:49 Musculoskeletal/extremity: ROM: intact in all extremities. 12:49 Skin: Appearance: Color: normal in color. 12:49 Neuro: Motor: is normal. 12:49 Neuro: extensor hallucis longus intact bilaterally . 12:49 Psych: Behavior/mood is pleasant, cooperative. Vital Signs: 12:46 BP 137 / 61; Pulse 83; Resp 16; Temp 97.1; Pulse Ox 100% on R/A; Weight 73.03 kg; hb Height 5 ft. 7 in. (170.18 cm); Pain 9/10; 13:55 BP 137 / 76; Pulse 74; Resp 17; Pulse Ox 99% on R/A; kr3 14:35 BP 136 / 74; Pulse 81; Resp 17; Pulse Ox 98% on R/A; kr3 12:46 Body Mass Index 25.22 (73.03 kg, 170.18 cm) hb MDM: 12:49 Patient medically screened. [facility] 14:13 Data reviewed: vital signs, nurses notes. Counseling: I had a detailed discussion with [facility] the patient and/or guardian regarding: the historical points, exam findings, and any diagnostic results supporting the discharge/admit diagnosis, radiology results, the need for outpatient follow up, to return to the emergency department if symptoms worsen or persist or if there are any questions or concerns that arise at home. ED course: CT reveals spondylosis , bulging disc. I do not currently suspect cord compression, cauda equina. Most likely due to radiculopathy. I do not suspect dvt, no swelling appreciated. No hypercoagulable conditions. . 05/12 12:56 Order name: CT Lumbar Spine Wo Con; Complete Time: 13:54 [facility] 05/12 12:55 Order name: Saline Lock; Complete Time: 13:33 [facility] Administered Medications: 13:25 Drug: Pepcid (famotidine) 10 mg Route: IVP; Site: left antecubital; kr3 14:38 Follow up: Response: No adverse reaction kr3 13:33 Drug: Decadron - Dexamethasone 10 mg Route: IVP; Site: left antecubital; kr3 14:38 Follow up: Response: No adverse reaction kr3 Disposition: 15:12 Co-signature as Attending Physician, Hugh Guthrie MD. rn Disposition Summary: 05/12/22 14:22 Discharge Ordered Location: Home [facility] Condition: Stable jmm Diagnosis - Sciatica [facility] Followup: [facility] - With: Private Physician - When: 2 - 3 days - Reason: Recheck today's complaints, Continuance of care, Re-evaluation by your physician Discharge Instructions: - Discharge Summary Sheet [facility] - Sciatica [facility] Forms: - Medication Reconciliation Form [facility] - Thank You Letter [facility] - Antibiotic Education [facility] - Prescription Opioid Use [facility] Prescriptions: - orphenadrine citrate 100 mg Oral Tablet Sustained Release - take 1 tablet by ORAL route 2 times per day As needed; 20 tablet; Refills: 0, jmm Product Selection Permitted - Medrol ([place]) 4 mg Oral Tablets, Dose Pack - take 1 tablet by ORAL route as directed - follow package instructions; 1 jm packet; Refills: 0, Product Selection Permitted Signatures: Dispatcher [employer] Jordan Chanel PA PA jmm Nieto, Roman, MD MD rn Baxter, Heather, RN RN Sendy Lemus RN RN kr3
[2022-05-12 15:01] VITALS: TEMP 97.1
[2022-05-12 15:04] VITALS: BP 136/74; O2SAT 98
== END 2022-05-12 14:38 | disposition home or self-care (01) ==
LOC: ER 12:37
DX: M54.30 Sciatica, unspecified side (principal); I10 Essential (primary) hypertension; Z88.5 Allergy status to narcotic agent
CPT/HCPCS: 72131; 96375; 96374; 99284; J1100

== ENCOUNTER 2023-12-23 17:40 | Emergency (ER) | payer OTHER ==
--- OUTSIDE RECORDS SUMMARY | 2023-12-23 17:43 | XMS REPORT | Continuity of Care Document ---
Author Name Unknown Address [address] [place] [address] [facility] Address 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 Name Role Phone Pcp, Patient Does Not Have A Primary Care Physic jaqui Sridevi Mccormick MD Attending Clinician SRIDEVI MCCORMICK Attending Clinician Unavailable Unknown, Attending Attending Clinician Unavailab le Payers Payer Name Policy Type Policy Number Effective Date Expirati on Date Source Allergies, Adverse Reactions, Alerts Allergy Name Allergy Type Status Severity Reaction(s) Onset Date Inactive Date Treating Clinician Comments Source NO KNOWN ALLERGIE S Drug Class Active [facility] Social History Social Habit Start Date Stop Date Quantity Comments Source Sexual orientation U [facility] Sex Assigned At 1955 00:00:00 1955 00:00:00 [facility] Smoking Status Start Date Stop Date Source Tobacco smoking consumption unknown [facility] Medications Ordered Medication Name Filled Medication Name Start Date Stop Date Current Medication? Ordering Clinician Indication Dosage Frequency Signature (SIG) Comments Components Source lisinopriL 10 mg tablet 2022-05 17:42: 30 04-29 00:00 :00 No TK 1 T PO QD [facility] buPROPion SR 100 mg SR tablet 2022-05 17:41: 43 Yes TK 1 T PO QD [facility] propranoloL 10 mg tablet 2022-05 17:41: 43 Yes TK 1 T PO QD PRF SEVERE ANXIETY [facility] SERTraline 50 mg tablet 2022-05 17:41: 43 Yes TK 1 AND 1/2 TS PO QD [facility] lisinopriL 10 mg tablet 2022-05 00:00: 00 Yes [id number] 10mg Take 1 tablet by mouth in the morning. [facility] benzonatate 100 mg capsule 2022-05 00:00: 00 Yes [id number] 200mg Take 2 capsules by mouth every 8 (eight) hours as needed for Cough. [facility] atorvastati n 20 mg tablet 2022-05 00:00: 00 Yes 20mg Take 1 tablet by mouth in the morning. [facility] Vital Signs Vital Name Observation Time Observation Value Comments S azeem Systolic blood pressure 2023-04-29 23:20:00 172 mm[Hg] [facility] Diastolic blood pressure 2023-04-29 23:20:00 84 mm[Hg] [facility] Heart rate 2023-04-29 23:19:00 102 /min [facility] Body temperature 2023-04-29 23:19:00 36.72 Nunu [facility] Respiratory rate 2023-04-29 23:19:00 17 /min [facility] Body weight 2023-04-29 23:19:00 75.116 kg [facility] Oxygen saturation in Arterial blood by Pulse oximetry 2023-04-29 23:19:00 96 /min [facility] Procedures Procedure Date / Time Performed Performing Clinicia n Source POCT MOLECULAR FLU 2023-04-29 23:26:00 Unknown, Attend ing [facility] Encounters Start Date/Time End Date/Time Encounter Type Admission Type Attending Clinicians Care Facility Care Department Encounter ID Source 2023-05-17 00:00:00 2023-05-17 00:00:00 Sridevi Fuller [facility] [id number] [facility] 2023-05-07 00:00:00 2023-05-07 00:00:00 Luis Angel Mccormick Amanda [facility] [id number] [facility] 2023-04-29 18:00:00 2023-04-29 18:00:00 Outpatient R SRIDEVI MCCORMICK [facility] [id number] [facility] 2023-04-29 18:00:00 2023-04-29 18:00:00 Urgent Care Sridevi Mccormick Unknown, Attending [facility] [id number] [facility] Results Test Description Test Time Test Comments Results Result Co mments Source [facility]
[2023-12-23] MEDS ORDERED: LABETALOL 20 MG/4ML SYRINGE IV ONE ×2 (18:00→18:32)
[2023-12-23] MEDS ORDERED: METHYLPREDNISOLONE 125 MG INJ ONE (18:15)
[2023-12-23] MEDS ORDERED: DIPHENHYDRAMINE 50 MG/ML VIAL ONE (18:15)
--- NOTE | 2023-12-23 18:28 | RAD REPORT ---
EXAM DESCRIPTION: CT - Ct Stroke Brain Wo Cont - 12/23/2023 6:07 pm CLINICAL HISTORY: STROKE ALERT COMPARISON: CT-STROKE BRAIN W/O CONTRAST dated 05/06/2014; Neck Angio dated 12/23/2023; Head angio date d 12/23/2023 TECHNIQUE: Noncontrast head CT images were obtained without IV contrast. Multiplanar reformats were generated and reviewed. All CT scans are performed using dose optimization technique as appropriate and may include automated exposure control or mA/KV adjustment according to patient size. FINDINGS: No intracranial hemorrhage, mass, or edema. Midline structures are unremarkable. Normal ventricular caliber for age. Isabel-white matter differentiation is preserved, without evidence of acute infarct. No abnormal extra- axial fluid collections. Mastoid air cells and visualized portions of the paranasal sinuses are clear. No acute bony findings. IMPRESSION: No evidence of an acute intracranial process. The findings were communicated to Priya Adair in the ED on 12/23/2023 at 18:24 hours.
--- NOTE | 2023-12-23 18:35 | RAD REPORT ---
EXAM DESCRIPTION: CT - Head angio - 12/23/2023 6:14 pm CLINICAL HISTORY: DIZZINESS COMPARISON: Ct Stroke Brain Wo Cont dated 12/23/2023; CT-STROKE BRAIN W/O CONTRAST dated 05/06/2014; Ne ck Angio dated 12/23/2023 TECHNIQUE: Axial CT angiography images of the head was performed with multiplanar and maximum intens ity projection reconstructions. Images performed following intravenous administration of iodinated co ntrast. All CT scans are performed using dose optimization technique as appropriate and may include automated exposure control or mA/KV adjustment according to patient size. FINDINGS: No evidence of large vessel occlusion. No evidence of aneurysm or dissection flap is detec victor hugo. No flow-limiting stenosis or vascular malformation identified. Antegrade flow is seen in the vertebral arteries. The vertebral arteries are codominant. The visualized dural venous sinuses are grossly patent. IMPRESSION: No evidence of large vessel occlusion or flow-limiting stenosis. The findings were communicated to Priya Adair in the ED on 12/23/2023 at 18:24 hours.
--- NOTE | 2023-12-23 18:39 | RAD REPORT ---
EXAM DESCRIPTION: CT - Neck Angio - 12/23/2023 6:14 pm CLINICAL HISTORY: cerebellar issues COMPARISON: No comparisons TECHNIQUE: Axial CT angiography images of the neck was performed with multiplanar and maximum intens ity projection reconstructions. Images performed following intravenous administration of iodinated c ontrast. All CT scans are performed using dose optimization technique as appropriate and may include automated exposure control or mA/KV adjustment according to patient size. Quantification of carotid stenosis, if any, is performed according to NASCET criteria. FINDINGS: A left aortic arch is identified with normal three vessel configuration of the great vesse ls. No significant flow abnormality is seen of the common carotid bilaterally. No significant stenosis is identified involving the cervical segments of both internal carotid arteri es. Normal flow is seen within both vertebral arteries. Mild multifocal narrowing of the proximal intradu ral left vertebral artery noted. IMPRESSION: No significant flow abnormality of the neck vessels is identified. Mild multifocal atherosclerotic narrowing of the proximal intradural left vertebral artery is noted. The findings were communicated to Priya Adair in the ED On 12/23/2023 at 18:24 hours. CAROTID STENOSIS REFERENCE USING NASCET CRITERIA: % ICA stenosis = (1 - narrowest ICA diameter/diameter of distal cervical ICA) x 100. Mild - <50% stenosis. Moderate - 50-69% stenosis. Severe - 70-94% stenosis. Near occlusion - 95-99% stenosis. Occluded - 100% stenosis.
[2023-12-23] MEDS ORDERED: TENECTEPLASE 50 MG/10 ML VIAL IV ONE (18:44)
--- NOTE | 2023-12-23 20:14 | RAD REPORT ---
EXAM DESCRIPTION: GRISChest Single View12/23/2023 6:37 pm CLINICAL HISTORY: COUGH COMPARISON: Chest Single View dated 07/08/2021; Chest Pa And Lat (2 Views) dated 09/23/2018; Chest Pa A nd Lat (2 Views) dated 09/20/2018; CHEST SINGLE VIEW dated 05/06/2014; Spine Lumbar Wo Con dated 3 TECHNIQUE: Portable AP view of the chest. FINDINGS: Mild patchy bibasilar opacities. No pneumothorax or effusion. The cardiomediastinal conto urs are unremarkable. IMPRESSION: Mild patchy bibasilar opacities, may reflect atelectasis or early airspace disease.
[2023-12-23 20:32] LABS: Absolute Eosinophils 0.1 K/uL (0-0.5); Absolute Lymphocytes (CBC) 0.8 K/uL (0.7-4.9); Absolute Monocytes 0.2 K/uL (0.1-1.3); Absolute Neutrophil 3.5 K/uL (1.8-8.0); Basophils % 0.7 % (0-1.3); Eosinophils % 1.5 % (0-4.4); Hematocrit 42.5 % (36.0-45.0); Lymphocytes % 17.4 % (15.3-44.8); MCH 30.4 pg (27.0-35.0); MCHC 32.9 g/dL (32.0-36.0); MCV 92.4 fL (80-100); MPV 8.1 fL (7.6-11.3); Monocytes % 5.1 % (3.3-12.3); Neutrophils % 75.3 % (41.7-73.7); Nucleated Red Blood Cells % 0.1 % (0-0); Platelets 208 thou/uL (152-406); RBC Red Blood Cell Count 4.59 M/uL (3.86-4.86); Red Cell Distribution Width 13.4 % (12.1-15.2)
[2023-12-23 20:39] LABS: PT Prothrombin Time 10.4 SECONDS (9.4-12.5); PTT, Activated Partial Thromb 32.2 SECONDS (24.3-36.9); Protime INR 0.93
--- NOTE | 2023-12-23 20:49 | EDPHYS ---
Physician Documentation [facility] Name: Cathy Romero Age: 68 yrs Sex: Female : 1955 Arrival Date: 12/23/2023 Time: 17:40 Bed 18 Private MD: ED Physician Jorge Gandara HPI: 12/22 18:14 This 68 yrs old Female presents to ER via Ambulatory with complaints of S/S ec2 of Possible Stroke. 18:32 Patient arrives today for evaluation of strokelike symptoms. Patient reports that ec2 approximately 1715 she had noticed some issues with her gait, states that she was favoring her right side. No history of stroke, not on anticoagulation. No falls injuries or trauma.. Historical: - Allergies: 18:08 Codeine; ph - PMHx: 17:52 Anxiety; Depression; Hypertension; Transient cerebral ischemia; db - PSHx: 17:52 Repair of inguinal hernia; db - Immunization history:: Adult Immunizations unknown. - Infectious Disease History:: Denies. - Social history:: Smoking status: Patient denies any tobacco usage or history of. ROS: 18:32 Constitutional: as per hpi ec2 Exam: 18:32 Radiologist reports: Negative ec2 18:32 Constitutional: GEN: NAD Head: atraumatic Eyes: EOMI Ears: External ears are normal. CV: regular rate LUNGS: no respiratory distress ABD: non-distended SKIN: no evidence of rashes MSK: no evidence of trauma. Neuro: Cranial nerves II through XII intact, strength intact all 4 extremities, no pronator drift appreciated, abnormal [id number] on the right upper extremity. Vital Signs: 17:45 BP 199 / 77; Pulse 70; Resp 16; Temp 97.9(O); Pulse Ox 98% ; db 18:39 BP 168 / 99; Pulse 78; Resp 18; Pulse Ox 98% on R/A; ph 18:40 Weight 78.47 kg; ph 21:00 BP 171 / 91; Pulse 79; Resp 17; Pulse Ox 96% on R/A; cp4 22:34 BP 158 / 65; Pulse 74; Resp 18; Pulse Ox 98% ; cp4 NIH Stroke Scale Scores: 19:04 NIHSS Score: 1 ec2 19:17 NIHSS Score: 1 ph 20:00 NIHSS Score: 0 cp4 MDM: 17:49 Patient medically screened. ec2 18:32 Data reviewed: vital signs. ED course: Patient arrives today for strokelike symptoms ec2 with symptom onset of 1715 with right-sided dysmetria. Discussed case with radiology who reports a negative CT scan of the head with no LVO appreciated. I do shared decision-making with the patient regarding possible TNK and they were agreeable. Initially give 10 mg of labetalol with repeat pressure still elevated and subsequently give additional 20 mg of labetalol.. 18:36 TNKase (Tenecteplase) Screening: Indications: Definite evidence of stroke, ischemic, ec2 embolic, or hypertensive: Yes. Treatment will start within 4.5 hours onset of symptoms: Yes. No evidence of intracranial hemorrhage or CT of head and no evidence of peripheral hemorrhage or recent CVA: Yes. Consent for thrombolytic therapy: Yes. 18:46 ED course: EKG independently reviewed and interpreted by me, shows normal sinus rhythm, ec2 rate of 71, no acute ST segment elevations, intervals are nonconcerning.. 18:50 ED course: Repeat blood pressure within appropriate ranges. Will proceed with TNK.. ec2 21:04 ED course: discussed case w/ NICU physician who agrees to accept the pt for transfer. . ec2 12/22 17:50 Order name: Basic Metabolic Panel; Complete Time: 21:03 ec2 12/22 17:50 Order name: CBC with Diff; Complete Time: 20:37 ec2 12/22 17:50 Order name: High Sensitivity Troponin; Complete Time: 21:03 ec2 12/22 17:50 Order name: Protime (+inr); Complete Time: 20:45 ec2 12/22 17:50 Order name: Ptt, Activated; Complete Time: 20:45 ec2 12/22 18:06 Order name: Glucose, Ancillary Testing; Complete Time: 18:54 EDMS 12/22 22:15 Order name: CREATININE WHOLE BLOOD EDMS 12/22 17:50 Order name: CT Neck Angio; Complete Time: 18:54 ec2 12/22 17:50 Order name: CT Stroke Brain w/o Contrast; Complete Time: 18:54 ec2 12/22 17:50 Order name: Stroke CXR 1 View; Complete Time: 20:30 ec2 12/22 18:04 Order name: Head angio; Complete Time: 18:54 EDMS 12/22 17:50 Order name: Accucheck; Complete Time: 18:11 ec2 12/22 17:50 Order name: Cardiac monitoring; Complete Time: 18:40 ec2 12/22 17:50 Order name: EKG - Nurse/Tech; Complete Time: 18:40 ec2 12/22 17:50 Order name: IV Saline Lock; Complete Time: 18:40 ec2 12/22 17:50 Order name: Labs collected and sent; Complete Time: 18:40 ec2 12/22 17:50 Order name: NPO; Complete Time: 18:11 ec2 12/22 17:50 Order name: O2 Per Protocol; Complete Time: 18:11 ec2 12/22 17:50 Order name: O2 Sat Monitoring; Complete Time: 18:11 ec2 12/22 17:50 Order name: Stroke Swallow Screen; Complete Time: 19:26 ec2 Administered Medications: 18:20 Drug: diphenhydrAMINE IVP 12.5 mg IVP once Route: IVP; Site: right antecubital; ph 21:04 Follow up: Response: No adverse reaction cp4 18:20 Drug: MethylPrednisoLONE IVP 125 mg IVP once Route: IVP; Site: right antecubital; ph 21:04 Follow up: Response: No adverse reaction cp4 18:28 Drug: Labetalol IV 10 mg IV at bolus once Route: IV; Rate: bolus; Site: right ph antecubital; 18:29 Follow up: Response: No adverse reaction; Blood pressure is lowered; IV Status: cp4 Completed infusion 18:37 Drug: Labetalol IV 20 mg IV at bolus once; administer at a rate of 2 mg /min Route: IV; ph Rate: bolus; Site: right antecubital; 18:38 Follow up: Response: No adverse reaction; Blood pressure is lowered; IV Status: cp4 Completed infusion 18:45 Drug: TNK FOR STROKE - Tenecteplase IV (Administer 10 ml NS flush BEFORE and ph AFTER tenecteplase) 0.25 mg/kg IV at per protocol once; MAX DOSE 25 mg, IVP over 5 seconds {Co-Signature: dd2 (GARCIA PINTO RN).} Route: IV; Rate: per protocol; Site: right hand; 18:46 Follow up: Response: No adverse reaction; IV Status: Completed infusion cp4 21:46 Drug: Acetaminophen PO 1000 mg PO once Route: PO; cp4 22:34 Follow up: Response: No adverse reaction; Pain is decreased cp4 Point of Care Testing: Blood Glucose: 17:47 Blood Glucose: 81 mg/dL; db Ranges: Critical Glucose Levels:Adult <50 mg/dl or >400 mg/dl <40 mg/dl or >180 mg/dl Disposition Summary: 12/23/23 20:49 Transfer Ordered Notes: Transfer Location: Other Acute Care Facility ec2 Reason: Higher level of care ec2 Condition: Stable ec2 Problem: new ec2 Symptoms: are unchanged ec2 Accepting Physician: transferring doc(12/23/23 22:45) cp4 Diagnosis - Cerebellar Stroke ec2 Discharge Instructions: - Discharge Summary Sheet kmf Forms: - Medication Reconciliation Form kmf - SBAR form kmf Critical care time excluding procedures: 20:48 Critical care time: Bedside Care: 30 minutes, Consultation: 5 minutes, Family ec2 Intervention: 10 minutes. Total time: 45 minutes NIH Stroke Scale - NIH Stroke Score Date: 12/23/2023 Time: 19:04 Total Score = 1 10. Dysarthria (speech clarity - read or repeat words) - 0(Normal) 11. Extinction and Inattention (visual/tactile/auditory/spatial/personal) - 0(No abnormality) 1a. Level of Consciousness (LOC) - 0(Alert) 1b. Level of Consciousness (LOC) (Month \T\ Age) - 0(Both) 1c. LOC Commands (Open \T\ Closes Eyes/Student Finance Specialist) - 0(Both) 2. Best Gaze (Lateral Gaze Paresis) - 0(Normal) 3. Visual Field Loss - 0(No visual loss) 4. Facial Palsy - 0(Normal) 5a. Left Arm: Motor (10-second hold) - 0(No drift) 5b. Right Arm: Motor (10-second hold) - 0(No drift) 6a. Left Leg: Motor (5-second hold - always test supine) - 0(No drift) 6b. Right Leg: Motor (5-second hold - always test supine) - 0(No drift) 7. Limb Ataxia (finger/nose \T\ heel/montesinos - test with eyes open) - 1(Present in one limb) 8. Sensory Loss (pinprick arms/legs/face) - 0(Normal) 9. Best Language: Aphasia (description/naming/reading) - 0(No aphasia) Initials: ec2 NIH Stroke Scale - NIH Stroke Score Date: 12/23/2023 Time: 19:17 Total Score = 1 10. Dysarthria (speech clarity - read or repeat words) - 0(Normal) 11. Extinction and Inattention (visual/tactile/auditory/spatial/personal) - 0(No abnormality) 1a. Level of Consciousness (LOC) - 0(Alert) 1b. Level of Consciousness (LOC) (Month \T\ Age) - 0(Both) 1c. LOC Commands (Open \T\ Closes Eyes/Student Finance Specialist) - 0(Both) 2. Best Gaze (Lateral Gaze Paresis) - 0(Normal) 3. Visual Field Loss - 0(No visual loss) 4. Facial Palsy - 0(Normal) 5a. Left Arm: Motor (10-second hold) - 0(No drift) 5b. Right Arm: Motor (10-second hold) - 0(No drift) 6a. Left Leg: Motor (5-second hold - always test supine) - 0(No drift) 6b. Right Leg: Motor (5-second hold - always test supine) - 0(No drift) 7. Limb Ataxia (finger/nose \T\ heel/montesinos - test with eyes open) - 1(Present in one limb) 8. Sensory Loss (pinprick arms/legs/face) - 0(Normal) 9. Best Language: Aphasia (description/naming/reading) - 0(No aphasia) Initials: ph NIH Stroke Scale - NIH Stroke Score Date: 12/23/2023 Time: 20:00 Total Score = 0 10. Dysarthria (speech clarity - read or repeat words) - 0(Normal) 11. Extinction and Inattention (visual/tactile/auditory/spatial/personal) - 0(No abnormality) 1a. Level of Consciousness (LOC) - 0(Alert) 1b. Level of Consciousness (LOC) (Month \T\ Age) - 0(Both) 1c. LOC Commands (Open \T\ Closes Eyes/Student Finance Specialist) - 0(Both) 2. Best Gaze (Lateral Gaze Paresis) - 0(Normal) 3. Visual Field Loss - 0(No visual loss) 4. Facial Palsy - 0(Normal) 5a. Left Arm: Motor (10-second hold) - 0(No drift) 5b. Right Arm: Motor (10-second hold) - 0(No drift) 6a. Left Leg: Motor (5-second hold - always test supine) - 0(No drift) 6b. Right Leg: Motor (5-second hold - always test supine) - 0(No drift) 7. Limb Ataxia (finger/nose \T\ heel/montesinos - test with eyes open) - 0(Absent) 8. Sensory Loss (pinprick arms/legs/face) - 0(Normal) 9. Best Language: Aphasia (description/naming/reading) - 0(No aphasia) Initials: cp4 Signatures: Dispatcher [employer] EDMS Cristal Ashley RN RN ph Negrita Blake RN RN db Isra Blake MD MD ec2 Celeste Robert cp4 GARCIA PINTO RN dd2 Corrections: (The following items were deleted from the chart) 17:50 17:50 CT-STROKE BRAIN W/O CONTRAST+CT.RAD.BRZ ordered. EDMS EDMS 17:51 17:50 Chest Single View+RAD.RAD.BRZ ordered. EDMS EDMS 22:45 20:49 transferring doc ec2 cp4 12/23 12:28 12/22 18:50 ED course: Repeat blood pressure within appropriate ranges. Will ec2 proceed with TNK.. ec2
--- NOTE | 2023-12-23 20:49 | ER ---
Nurse's Notes [facility] Name: Cathy Romero Age: 68 yrs Sex: Female : 1955 Arrival Date: 12/23/2023 Time: 17:40 Bed 18 Private MD: Diagnosis: Cerebellar Stroke Presentation: 12/22 17:45 Chief complaint: Patient states: 1725 STARTED LEANING TOWARDS THE RIGHT SIDE. LAST db NORMAL FINE BEFORE. HX OF TIA. GLUCOSE IN TRIAGE 81. Coronavirus screen: Client denies travel out of the [place] in the last 14 days. At this time, the client does not indicate any symptoms associated with coronavirus-19. Ebola Screen: Patient negative for fever greater than or equal to 101.5 degrees Fahrenheit, and additional compatible Ebola Virus Disease symptoms Patient denies exposure to infectious person. Patient denies travel to an Ebola-affected area in the 21 days before illness onset. No symptoms or risks identified at this time. 17:45 Method Of Arrival: Ambulatory db 17:47 An acute neurological deficit is present. Pre-hospital glucose is not applicable to db this patient. Initial Sepsis Screen: Does the patient meet any 2 criteria? No. Patient's initial sepsis screen is negative. Does the patient have a suspected source of infection? No. Patient's initial sepsis screen is negative. Risk Assessment: Do you want to hurt yourself or someone else? Patient reports no desire to harm self or others. Onset of symptoms was December 23, 2023. 17:47 Acuity: JAVAD 2 db Triage Assessment: 17:52 The onset of the patients symptoms was December 23, 2023 at 17:25. General: Appears in no db apparent distress. comfortable, Behavior is calm, cooperative. Pain: Denies pain. Neuro: Level of Consciousness is awake, alert, obeys commands, Oriented to person, place, time, situation, Classification Clerk are equal bilaterally Gait is unsteady, Speech is normal, Reports DIFFICULTY AMBULATING. Stroke Activation: Symptom onset < 3 hours Physician: ED Attending; Name: ; Notified At: ; Arrived At: Physician: Mid-Level Provider; Name: ; Notified At: ; Arrived At: Physician: [not used]; Name: ; Notified At: ; Arrived At: Physician: [not used]; Name: ; Notified At: ; Arrived At: Physician: [not used]; Name: ; Notified At: ; Arrived At: Historical: - Allergies: 18:08 Codeine; ph - PMHx: 17:52 Anxiety; Depression; Hypertension; Transient cerebral ischemia; db - PSHx: 17:52 Repair of inguinal hernia; db - Immunization history:: Adult Immunizations unknown. - Infectious Disease History:: Denies. - Social history:: Smoking status: Patient denies any tobacco usage or history of. Screenin:23 [facility] ED Fall Risk Assessment (Adult) History of falling in the last 3 months, ph including since admission No falls in past 3 months (0 pts) Confusion or Disorientation No (0 pts) Intoxicated or Sedated No (0 pts) Impaired Gait Yes (1 pt) Mobility Assist Device Used No (0 pt) Altered Elimination No (0 pt) Score/Fall Risk Level 0 - 2 = Low Risk Oriented to surroundings, Maintained a safe environment, Hourly rounding (assess needs \T\ fall precautionary measures) done, Used ambulatory aids as needed (educated on \T\ assisted with). Abuse screen: Denies threats or abuse. Denies injuries from another. Nutritional screening: No deficits noted. Tuberculosis screening: No symptoms or risk factors identified. 19:26 Sargent Swallow Protocol Exclusion Criteria: Exclusion Criteria Result: Proceed Brief cp4 Cognitive Screen What is your name? Normal, Where are you right now? Normal, What year is it? Normal. Oral Mechanism Examination Facial Symmetry: Normal, Motion: Normal, Lip Closure: Normal, Oral Mechanism Result: Normal. 3 oz Water Swallow Challenge: Pt able to drink all water without stopping, coughing, choking or throat clearing: Yes Result: PASS MD Notified: Isra Blake MD. Assessment: 17:50 Reassessment: Pt taken to CT via wheelchair by charge nurse, Sebastien SANCHEZ. ph 18:15 VAN Scoring: Arm Drift: Patients demonstrates NO arm weakness. Patient is VAN Negative. ph TNKase (Tenecteplase) Screening: Indications: Definite evidence of stroke, ischemic, embolic, or hypertensive: Yes. Treatment will start within 4.5 hours onset of symptoms: Yes. No evidence of intracranial hemorrhage or CT of head and no evidence of peripheral hemorrhage or recent CVA: Yes. Consent for thrombolytic therapy: Yes. 18:15 General: Appears in no apparent distress. Behavior is calm, cooperative, appropriate ph for age. Pain: Denies pain. Neuro: Level of Consciousness is awake, alert, obeys commands, Oriented to person, place, time, situation, Classification Clerk are equal bilaterally Moves all extremities. Gait is unsteady, ataxic, Speech is normal, Facial symmetry appears normal, Pupils are PERRLA, Intact. Cardiovascular: Capillary refill < 3 seconds in bilateral fingers Patient's skin is warm and dry. Respiratory: Airway is patent Respiratory effort is even, unlabored. Derm: Skin is pink, warm \T\ dry. Musculoskeletal: Circulation, motion, and sensation intact. 20:00 General: Appears in no apparent distress. Behavior is calm, cooperative, appropriate cp4 for age. Pain: Denies pain. Neuro: Level of Consciousness is awake, alert, obeys commands, Oriented to person, place, time, situation, Classification Clerk are equal bilaterally Moves all extremities. Gait is unsteady, Speech is normal, Facial symmetry appears normal, Pupils are PERRLA, Intact. Cardiovascular: Rhythm is sinus rhythm. Respiratory: Airway is patent Respiratory effort is even, unlabored. GI: No signs and/or symptoms were reported involving the gastrointestinal system. : No signs and/or symptoms were reported regarding the genitourinary system. EENT: No signs and/or symptoms were reported regarding the EENT system. Derm: No signs and/or symptoms reported regarding the dermatologic system. Musculoskeletal: No signs and/or symptoms reported regarding the musculoskeletal system. 20:26 Reassessment: Called lab to check on blood results. Stated they do not have blood on cp4 patient. Patient states previous nurse collected and sent blood. Blood recollected and sent. Charge nurse notified. 21:02 Reassessment: 1900 See Stroke packet for vitals. cp4 21:45 Reassessment: Patient reports headache above her eyes. States she has headaches like cp4 this. Provider notified. 22:43 Reassessment: Patient states headache is better. No s/s of distress or complications. cp4 Vital Signs: 17:45 BP 199 / 77; Pulse 70; Resp 16; Temp 97.9(O); Pulse Ox 98% ; db 18:39 BP 168 / 99; Pulse 78; Resp 18; Pulse Ox 98% on R/A; ph 18:40 Weight 78.47 kg; ph 21:00 BP 171 / 91; Pulse 79; Resp 17; Pulse Ox 96% on R/A; cp4 22:34 BP 158 / 65; Pulse 74; Resp 18; Pulse Ox 98% ; cp4 NIH Stroke Scale Scores: 19:04 NIHSS Score: 1 ec2 19:17 NIHSS Score: 1 ph 20:00 NIHSS Score: 0 cp4 ED Course: 17:43 Patient arrived in ED. db 17:47 Arm band placed on Patient placed in an exam room. db 17:49 Isra Blake MD is Attending Physician. ec2 17:50 Cristal Ashley, DANIEL is Primary Nurse. ph 17:52 Triage completed. db 17:55 Inserted saline lock: 20 gauge in right antecubital area, using aseptic technique. ph Blood collected. Flushed with 10 mL NS inserted by DANIEL Crowe. 18:09 CT Stroke Brain w/o Contrast In Process Unspecified. EDMS 18:16 CT Neck Angio In Process Unspecified. EDMS 18:16 Head angio In Process Unspecified. EDMS 18:39 Stroke CXR 1 View In Process Unspecified. EDMS 18:40 EKG done, by ED staff, reviewed by Isra Blake MD. Inserted saline lock: 20 gauge in ph right hand, using aseptic technique. Flushed with 10 mL NS. 19:23 Patient has correct armband on for positive identification. Placed in gown. Bed in low ph position. Call light in reach. Side rails up X2. Client placed on continuous cardiac and pulse oximetry monitoring. NIBP monitoring applied. hospital monitor on. Door closed. Noise minimized. Warm blanket given. Pillow given. 19:24 No provider procedures requiring assistance completed. Patient admitted, IV remains in ph place. 20:56 initiated transfer with roger \Jairo\ [facility]. kmf 21:18 Attending Physician role handed off by Isra Blake MD jayce 21:18 Jorge Gandara MD is Attending Physician. jayce 21:20 doc to doc 2119. kmf 22:46 Provided Education on: transfer. [facility] 22:46 Patient transferred, IV remains in place. 4 12/23 05:06 pt was accepted to [facility] \[facility]\ 2119. pt was auto accepted to [facility] number for nurse kmf to nurse report [phone]. [facility] to transfer pt. Administered Medications: 12/22 18:20 Drug: diphenhydrAMINE IVP 12.5 mg IVP once Route: IVP; Site: right antecubital; ph 21:04 Follow up: Response: No adverse reaction cp4 18:20 Drug: MethylPrednisoLONE IVP 125 mg IVP once Route: IVP; Site: right antecubital; ph 21:04 Follow up: Response: No adverse reaction cp4 18:28 Drug: Labetalol IV 10 mg IV at bolus once Route: IV; Rate: bolus; Site: right ph antecubital; 18:29 Follow up: Response: No adverse reaction; Blood pressure is lowered; IV Status: cp4 Completed infusion 18:37 Drug: Labetalol IV 20 mg IV at bolus once; administer at a rate of 2 mg /min Route: IV; ph Rate: bolus; Site: right antecubital; 18:38 Follow up: Response: No adverse reaction; Blood pressure is lowered; IV Status: cp4 Completed infusion 18:45 Drug: TNK FOR STROKE - Tenecteplase IV (Administer 10 ml NS flush BEFORE and ph AFTER tenecteplase) 0.25 mg/kg IV at per protocol once; MAX DOSE 25 mg, IVP over 5 seconds {Co-Signature: dd2 (GARCIA PINTO RN).} Route: IV; Rate: per protocol; Site: right hand; 18:46 Follow up: Response: No adverse reaction; IV Status: Completed infusion cp4 21:46 Drug: Acetaminophen PO 1000 mg PO once Route: PO; cp4 22:34 Follow up: Response: No adverse reaction; Pain is decreased cp4 Medication: 19:23 VIS not applicable for this client. ph Point of Care Testing: Blood Glucose: 17:47 Blood Glucose: 81 mg/dL; db Ranges: Outcome: 20:49 ER care complete, transfer ordered by . ec2 22:43 Transferred by ground EMS to [facility], Transfer form completed. cp4 X-rays sent w/ patient. 22:43 Condition: stable 22:43 Instructed on the need for transfer, 22:45 Patient left the ED. cp4 NIH Stroke Scale - NIH Stroke Score Date: 12/23/2023 Time: 19:04 Total Score = 1 10. Dysarthria (speech clarity - read or repeat words) - 0(Normal) 11. Extinction and Inattention (visual/tactile/auditory/spatial/personal) - 0(No abnormality) 1a. Level of Consciousness (LOC) - 0(Alert) 1b. Level of Consciousness (LOC) (Month \T\ Age) - 0(Both) 1c. LOC Commands (Open \T\ Closes Eyes/Conservation Enforcement Officer) - 0(Both) 2. Best Gaze (Lateral Gaze Paresis) - 0(Normal) 3. Visual Field Loss - 0(No visual loss) 4. Facial Palsy - 0(Normal) 5a. Left Arm: Motor (10-second hold) - 0(No drift) 5b. Right Arm: Motor (10-second hold) - 0(No drift) 6a. Left Leg: Motor (5-second hold - always test supine) - 0(No drift) 6b. Right Leg: Motor (5-second hold - always test supine) - 0(No drift) 7. Limb Ataxia (finger/nose \T\ heel/montesinos - test with eyes open) - 1(Present in one limb) 8. Sensory Loss (pinprick arms/legs/face) - 0(Normal) 9. Best Language: Aphasia (description/naming/reading) - 0(No aphasia) Initials: ec2 NIH Stroke Scale - NIH Stroke Score Date: 12/23/2023 Time: 19:17 Total Score = 1 10. Dysarthria (speech clarity - read or repeat words) - 0(Normal) 11. Extinction and Inattention (visual/tactile/auditory/spatial/personal) - 0(No abnormality) 1a. Level of Consciousness (LOC) - 0(Alert) 1b. Level of Consciousness (LOC) (Month \T\ Age) - 0(Both) 1c. LOC Commands (Open \T\ Closes Eyes/Conservation Enforcement Officer) - 0(Both) 2. Best Gaze (Lateral Gaze Paresis) - 0(Normal) 3. Visual Field Loss - 0(No visual loss) 4. Facial Palsy - 0(Normal) 5a. Left Arm: Motor (10-second hold) - 0(No drift) 5b. Right Arm: Motor (10-second hold) - 0(No drift) 6a. Left Leg: Motor (5-second hold - always test supine) - 0(No drift) 6b. Right Leg: Motor (5-second hold - always test supine) - 0(No drift) 7. Limb Ataxia (finger/nose \T\ heel/montesinos - test with eyes open) - 1(Present in one limb) 8. Sensory Loss (pinprick arms/legs/face) - 0(Normal) 9. Best Language: Aphasia (description/naming/reading) - 0(No aphasia) Initials: ph NIH Stroke Scale - NIH Stroke Score Date: 12/23/2023 Time: 20:00 Total Score = 0 10. Dysarthria (speech clarity - read or repeat words) - 0(Normal) 11. Extinction and Inattention (visual/tactile/auditory/spatial/personal) - 0(No abnormality) 1a. Level of Consciousness (LOC) - 0(Alert) 1b. Level of Consciousness (LOC) (Month \T\ Age) - 0(Both) 1c. LOC Commands (Open \T\ Closes Eyes/Conservation Enforcement Officer) - 0(Both) 2. Best Gaze (Lateral Gaze Paresis) - 0(Normal) 3. Visual Field Loss - 0(No visual loss) 4. Facial Palsy - 0(Normal) 5a. Left Arm: Motor (10-second hold) - 0(No drift) 5b. Right Arm: Motor (10-second hold) - 0(No drift) 6a. Left Leg: Motor (5-second hold - always test supine) - 0(No drift) 6b. Right Leg: Motor (5-second hold - always test supine) - 0(No drift) 7. Limb Ataxia (finger/nose \T\ heel/montesinos - test with eyes open) - 0(Absent) 8. Sensory Loss (pinprick arms/legs/face) - 0(Normal) 9. Best Language: Aphasia (description/naming/reading) - 0(No aphasia) Initials: cp4 Signatures: Dispatcher [employer] Jorge Dubon MD MD cha Hall, Patricia, RN RN Negrita Blake RN RN Isra Blake MD MD ec2 Potter, Christina cp4 Jessica Palma DIANA RN dd2 Corrections: (The following items were deleted from the chart) 19:05 19:02 Sargent Swallow Protocol Exclusion Criteria: NPO for medical/surgical reason ph by provider order ph 19:22 18:15 NIHSS Score: 1 [facility] 12/23 05:51 05:[address] Cunha, A \T\ 9970. pt was auto accepted to [facility] kmf number for nurse to nurse report kmf
[2023-12-23 20:53] LABS: Troponin High Sensitivity 8.7 pg/mL (<58.9)
[2023-12-23] MEDS ORDERED: ACETAMINOPHEN 500 MG TAB ONE (21:41)
[2023-12-23 23:12] VITALS: TEMP 97.9
[2023-12-23 23:16] VITALS: BP 158/65; O2SAT 98
--- NOTE | 2023-12-24 16:58 | EKG ---
Test Date: 2023-12-23 Test Time: 18:43:41 Mechanical Design Engineer Facilities: MEME MEASUREMENT RESULTS: Intervals: Rate: 71 RI: 154 QRSD: 84 QT: 424 QTc: 460 [place]: P: 73 RI: 154 QRS: -1 T: 65 INTERPRETIVE STATEMENTS: Normal sinus rhythm Possible Left atrial enlargement Borderline ECG Compared to ECG 12/23/2023 18:42:49 No significant changes Electronically Signed On 12-24-23 16:56:00 CDT by Jw Riggins
--- NOTE | 2023-12-24 16:58 | EKG ---
Test Date: 2023-12-23 Test Time: 18:42:49 Strap Folding Machine Operator: MEME MEASUREMENT RESULTS: Intervals: Rate: 71 NM: 148 QRSD: 84 QT: 426 QTc: 462 [place]: P: 76 NM: 148 QRS: 1 T: 68 INTERPRETIVE STATEMENTS: Normal sinus rhythm Possible Left atrial enlargement Borderline ECG Compared to ECG 05/06/2014 16:52:59 No significant changes Electronically Signed On 12-24-23 16:56:04 CDT by Jw Riggins
== END 2023-12-23 22:45 ==
LOC: ER 17:40
DX: I63.89 Other cerebral infarction (principal); I10 Essential (primary) hypertension; R29.701 NIHSS score 1; Z86.73 Personal history of transient ischemic attack (TIA), and cerebral infarction without residual deficits
CPT/HCPCS: 85025; 80048; 36415; 85610; 82565; 82947; 85730; 84484; 70496; 70498; 70450; 71045; 96374; Q9967; J3101; J1200; J2919; 93005

== ENCOUNTER 2024-01-01 11:36 | Emergency (ER) | payer OTHER ==
[2024-01-01] MEDS ORDERED: METOCLOPRAMIDE 10 MG/2mL INJ ONE (12:21)
[2024-01-01] MEDS ORDERED: NA CHLORIDE 0.9% 1,000 ML ONE (12:21)
[2024-01-01] MEDS ORDERED: DIPHENHYDRAMINE 50 MG/ML VIAL ONE (12:21)
[2024-01-01] MEDS ORDERED: Magnesium Sulfate 2gm IVPB 2 G/50 ML BAG IV ONE (12:22)
[2024-01-01 12:23] LABS: Absolute Eosinophils 0.1 K/uL (0-0.5); Absolute Monocytes 0.6 K/uL (0.1-1.3); Absolute Neutrophil 2.2 K/uL (1.8-8.0); Basophils % 1.1 % (0-1.3); Hematocrit 44.5 % (36.0-45.0); Lymphocytes % 25.2 % (15.3-44.8); MCH 30.8 pg (27.0-35.0); MCHC 33.6 g/dL (32.0-36.0); MCV 91.7 fL (80-100); MPV 8.4 fL (7.6-11.3); Monocytes % 14.6 % (3.3-12.3); Neutrophils % 57.1 % (41.7-73.7); Platelets 199 thou/uL (152-406); RBC Red Blood Cell Count 4.86 M/uL (3.86-4.86)
--- NOTE | 2024-01-01 12:30 | RAD REPORT ---
EXAM DESCRIPTION: CT - Head Brain Wo Cont - 01/01/2024 12:24 pm CLINICAL HISTORY: HEADACHE COMPARISON: Head angio dated 12/23/2023; Ct Stroke Brain Wo Cont dated 12/23/2023 TECHNIQUE: All CT scans are performed using dose optimization technique as appropriate and may inclu de automated exposure control or mA/KV adjustment according to patient size. FINDINGS: No intracranial hemorrhage, hydrocephalus or extra-axial fluid collection.No areas of brai n edema or evidence of midline shift. The paranasal sinuses and mastoids are clear. The calvarium is intact. IMPRESSION: No acute intracranial abnormality.
[2024-01-01 12:41] LABS: Albumin/Globulin Ratio 1.3 (1.1-1.8); Anion Gap 7.5 mEq/L (5.0-15.0); Bilirubin Total 0.8 mg/dL (0.2-1.0); Potassium 4.5 mEq/L (3.5-5.1)
--- NOTE | 2024-01-01 13:34 | ER ---
Nurse's Notes [facility] Name: Cathy Romero Age: 68 yrs Sex: Female : 1955 Arrival Date: 01/01/2024 Time: 11:36 Bed 15 Private MD: Diagnosis: Headache Presentation: 12/31 11:50 Chief complaint: Patient's son or daughter states: last Friday was treated for stroke, tm6 transferred to [facility]. Today feeling weak, light sensitivity, headache. "Like my brain is sitting on something heavy." Feeling nauseous. Coronavirus screen: Vaccine status: Patient reports being unvaccinated. Ebola Screen: Patient negative for fever greater than or equal to 101.5 degrees Fahrenheit, and additional compatible Ebola Virus Disease symptoms Patient denies exposure to infectious person. Patient denies travel to an Ebola-affected area in the 21 days before illness onset. No symptoms or risks identified at this time. Initial Sepsis Screen: Does the patient meet any 2 criteria? No. Patient's initial sepsis screen is negative. Does the patient have a suspected source of infection? No. Patient's initial sepsis screen is negative. Risk Assessment: Do you want to hurt yourself or someone else? Patient reports no desire to harm self or others. Onset of symptoms was January 01, 2024. 11:50 Method Of Arrival: Wheelchair tm6 11:50 Acuity: JAVAD 3 tm6 Triage Assessment: 11:53 General: Appears uncomfortable, Behavior is calm, cooperative. Pain: Complains of pain tm6 in face and scalp Pain does not radiate. Pain currently is 4 out of 10 on a pain scale. Quality of pain is described as aching, Pain began 4 hours ago. EENT: No signs and/or symptoms were reported regarding the EENT system. Neuro: Level of Consciousness is awake, alert, obeys commands, Oriented to person, place, time, situation. Neuro: Reports headache occipital area, since this morning. Cardiovascular: No deficits noted. Patient's skin is warm and dry. Respiratory: Airway is patent Respiratory effort is even, unlabored, Respiratory pattern is regular, symmetrical. GI: Abdomen is flat, non-distended, Reports nausea. : No signs and/or symptoms were reported regarding the genitourinary system. Derm: No signs and/or symptoms reported regarding the dermatologic system. Musculoskeletal: No signs and/or symptoms reported regarding the musculoskeletal system. Historical: - Allergies: 11:53 Codeine; tm6 - PMHx: 11:53 Anxiety; Depression; Hypertension; Transient cerebral ischemia; Cerebrovascular tm6 accident; 11:53 Hypercholesterolemia; tm6 - PSHx: 11:53 Repair of inguinal hernia; tm6 - Immunization history:: Client reports having NOT received the Covid vaccine. - Infectious Disease History:: Denies. - Social history:: Smoking status: Patient denies any tobacco usage or history of. Patient uses alcohol, but reports only rare drinking. - Family history:: not pertinent. Screenin:55 [facility] ED Fall Risk Assessment (Adult) History of falling in the last 3 months, rs5 including since admission No falls in past 3 months (0 pts) Confusion or Disorientation No (0 pts) Intoxicated or Sedated No (0 pts) Impaired Gait No (0 pts) Mobility Assist Device Used No (0 pt) Altered Elimination No (0 pt) Score/Fall Risk Level 0 - 2 = Low Risk Oriented to surroundings, Maintained a safe environment. Abuse screen: Denies threats or abuse. Nutritional screening: No deficits noted. Tuberculosis screening: No symptoms or risk factors identified. Assessment: 11:57 General: Appears in no apparent distress. uncomfortable, Behavior is calm, cooperative. rs5 Pain: Complains of pain in head Pain currently is 4 out of 10 on a pain scale. Quality of pain is described as pressure. Neuro: Level of Consciousness is awake, alert, obeys commands, Oriented to person, place, time, situation. Cardiovascular: Patient's skin is warm and dry. Respiratory: Airway is patent Respiratory effort is even, unlabored, Respiratory pattern is regular, symmetrical. GI: Abdomen is round non-distended, Abd is soft and non tender X 4 quads. : No signs and/or symptoms were reported regarding the genitourinary system. EENT: Reports "my eyes are very sensitive to light right now". Derm: Skin is intact, Skin is pink, warm \\T\\ dry. Musculoskeletal: Range of motion: intact in all extremities. 13:12 Reassessment: Patient and/or family updated on plan of care and expected duration. Pain rs5 level reassessed. Patient is alert, oriented x 3, equal unlabored respirations, skin warm/dry/pink. Patient states feeling better. 13:40 Reassessment: No changes from previously documented assessment. rs5 Vital Signs: 11:50 BP 153 / 82; Pulse 80; Resp 19; Temp 97.3(TE); Pulse Ox 96% on R/A; Weight 79.38 kg; tm6 Height 5 ft. 6 in. ; Pain 4/10; 12:30 BP 135 / 77; Pulse 74; Resp 17; Pulse Ox 98% on R/A; rs5 12:30 BP 137 / 76; Pulse 70; Resp 18; Pulse Ox 99% on R/A; rs5 13:30 BP 133 / 74; Pulse 73; Resp 17; Pulse Ox 98% on R/A; rs5 11:50 Body Mass Index 28.25 (79.38 kg, 167.64 cm) tm6 11:50 Pain Scale: Adult tm6 ED Course: 11:38 Patient arrived in ED. ra3 11:40 Ravin Shearer MD is Attending Physician. rt 11:53 Triage completed. tm6 11:55 Arm band placed on right wrist. tm6 11:56 Patient has correct armband on for positive identification. Placed in gown. Bed in low rs5 position. Call light in reach. Side rails up X2. 12:04 Brian Walker, RN is Primary Nurse. rs5 12:20 Inserted saline lock: 20 gauge in right antecubital area, using aseptic technique. rs5 Blood collected. Flushed with 10 mL NS. 12:20 No provider procedures requiring assistance completed. rs5 12:25 CT Head Brain wo Cont In Process Unspecified. EDMS 13:40 IV discontinued, intact, bleeding controlled, No redness/swelling at site. Pressure rs5 dressing applied. Administered Medications: 12:30 Drug: NS 0.9% IV 1000 ml IV at 1 bolus Per protocol; 1000 mL bolus Route: IV; Rate: 1 rs5 bolus; Site: right antecubital; 13:33 Follow up: IV Status: Completed infusion rs5 12:30 Drug: metoCLOPramide IVP 10 mg IVP once; over 1 to 2 minutes Route: IVP; Site: right rs5 antecubital; 13:01 Follow up: Response: No adverse reaction; Nausea is decreased rs5 12:30 Drug: diphenhydrAMINE IVP 25 mg IVP once Route: IVP; Site: right antecubital; rs5 13:01 Follow up: Response: No adverse reaction rs5 12:30 Drug: Magnesium Sulfate IVPB 2 grams IVPB once over 2 hrs Route: IVPB; Infused Over: 2 rs5 hrs; Site: right antecubital; 13:35 Follow up: Response: No adverse reaction; IV Status: Completed infusion rs5 Medication: 12:40 VIS not applicable for this client. rs5 Outcome: 13:33 Discharge ordered by . rt 13:40 Discharged to home ambulatory, rs5 13:40 Condition: stable rs5 13:40 Discharge instructions given to patient, family, Instructed on discharge instructions, follow up and referral plans. Demonstrated understanding of instructions, follow-up care, 13:48 Patient left the ED. rs5 Signatures: Dispatcher [employer] EDMS Ravin Shearer MD MD rt Brian Walker RN RN rs5 Nya Walters RN RN tm6 Janet Hylton ra3 Corrections: (The following items were deleted from the chart) 13:35 13:35 IV Status: Completed infusion rs5 rs5
--- NOTE | 2024-01-01 13:34 | EDPHYS ---
Physician Documentation [facility] Name: Cathy Romero Age: 68 yrs Sex: Female : 1955 Arrival Date: 01/01/2024 Time: 11:36 Bed 15 Private MD: ED Physician Ravin Shearer HPI: 12/31 16:07 This 68 yrs old Female presents to ER via Wheelchair with complaints of weakness rt sensitivty to light with head pressure. 16:07 Patient had a recent CVA, was transferred to [facility] after receiving rt thrombolytics. Per patient report, she had a negative MRI and had returned to baseline neurologic status and has been doing well since discharge. Patient states that today she developed a pressure in her head as well as a light sensitivity and nausea. She denies other acute complaints at this time, symptoms are moderate in severity, no other aggravating or alleviating factors.. Historical: - Allergies: 11:53 Codeine; tm6 - PMHx: 11:53 Anxiety; Depression; Hypertension; Transient cerebral ischemia; Cerebrovascular tm6 accident; 11:53 Hypercholesterolemia; tm6 - PSHx: 11:53 Repair of inguinal hernia; tm6 - Immunization history:: Client reports having NOT received the Covid vaccine. - Infectious Disease History:: Denies. - Social history:: Smoking status: Patient denies any tobacco usage or history of. Patient uses alcohol, but reports only rare drinking. - Family history:: not pertinent. ROS: 16:07 Constitutional: Negative for fever, chills, and weight loss, Cardiovascular: Negative rt for chest pain, palpitations, and edema, Respiratory: Negative for shortness of breath, cough, wheezing, and pleuritic chest pain, Abdomen/GI: Negative for abdominal pain, nausea, vomiting, diarrhea, and constipation, MS/Extremity: Negative for injury and deformity, Skin: Negative for injury, rash, and discoloration, 16:07 Eyes: Positive for blurry vision, photophobia, 16:07 Neuro: Positive for headache, Negative for loss of consciousness, Exam: 16:07 Constitutional: This is a well developed, well nourished patient who is awake, alert, rt and in no acute distress. Head/Face: Normocephalic, atraumatic. Chest/axilla: Normal chest wall appearance and motion. Nontender with no deformity. No lesions are appreciated. Cardiovascular: Regular rate and rhythm with a normal S1 and S2. No gallops, murmurs, or rubs. Normal PMI, no JVD. No pulse deficits. Respiratory: Lungs have equal breath sounds bilaterally, clear to auscultation and percussion. No rales, rhonchi or wheezes noted. No increased work of breathing, no retractions or nasal flaring. Abdomen/GI: Soft, non-tender, with normal bowel sounds. No distension or tympany. No guarding or rebound. No evidence of tenderness throughout. Skin: Warm, dry with normal turgor. Normal color with no rashes, no lesions, and no evidence of cellulitis. MS/ Extremity: Pulses equal, no cyanosis. Neurovascular intact. Full, normal range of motion. 16:07 ECG was reviewed by the Attending Physician. 16:07 Neuro: Cranial nerves II through XII intact, strength and sensation intact in upper and lower extremities, speech normal, Vital Signs: 11:50 BP 153 / 82; Pulse 80; Resp 19; Temp 97.3(TE); Pulse Ox 96% on R/A; Weight 79.38 kg; tm6 Height 5 ft. 6 in. ; Pain 4/10; 12:30 BP 135 / 77; Pulse 74; Resp 17; Pulse Ox 98% on R/A; rs5 12:30 BP 137 / 76; Pulse 70; Resp 18; Pulse Ox 99% on R/A; rs5 13:30 BP 133 / 74; Pulse 73; Resp 17; Pulse Ox 98% on R/A; rs5 11:50 Body Mass Index 28.25 (79.38 kg, 167.64 cm) tm6 11:50 Pain Scale: Adult tm6 MDM: 12:01 Patient medically screened. rt 16:07 Differential Diagnosis Intracranial hemorrhage, CVA, headache. Data reviewed: vital rt signs, nurses notes, lab test result(s), EKG, radiologic studies. Consideration of Admission/Observation Escalation of care including admission/observation considered. I considered the following discharge prescriptions or medication management in the emergency department Medications were administered in the Emergency Department. See MAR. Independent interpretation of the following test(s) in the Emergency Department CT Scan: My interpretation is No intracranial hemorrhage seen on interpretation of CT scan images. Care significantly affected by the following chronic conditions: CVA. Counseling: I had a detailed discussion with the patient and/or guardian regarding the historical points, exam findings, and any diagnostic results supporting the discharge/admit diagnosis, lab results, radiology results, the need for outpatient follow up, to return to the emergency department if symptoms worsen or persist or if there are any questions or concerns that arise at home. Response to treatment: the patient's symptoms have markedly improved after treatment. ED course: Patient has no focal neurologic deficits, no intracranial hemorrhage on CT scan. Symptoms have resolved after headache cocktail. Low suspicion for CVA, she does not require admission at this time, return precautions discussed.. 12/31 12:02 Order name: CBC with Diff; Complete Time: 12:56 rt 12/31 12:02 Order name: CMP; Complete Time: 12:56 rt 12/31 12:02 Order name: CT Head Brain wo Cont rt 12/31 12:02 Order name: EKG; Complete Time: 12:02 rt 12/31 12:02 Order name: EKG - Nurse/Tech; Complete Time: 12:37 rt EC:07 Rate is 70 beats/min. Rhythm is regular, Normal Sinus Rhythm with No ectopy. QRS Stem rt is Normal. TX interval is normal. QRS interval is normal. QT interval is normal. No Q waves. T waves are Normal. No ST changes noted. Interpreted by me. Administered Medications: 12:30 Drug: NS 0.9% IV 1000 ml IV at 1 bolus Per protocol; 1000 mL bolus Route: IV; Rate: 1 rs5 bolus; Site: right antecubital; 13:33 Follow up: IV Status: Completed infusion rs5 12:30 Drug: metoCLOPramide IVP 10 mg IVP once; over 1 to 2 minutes Route: IVP; Site: right rs5 antecubital; 13:01 Follow up: Response: No adverse reaction; Nausea is decreased rs5 12:30 Drug: diphenhydrAMINE IVP 25 mg IVP once Route: IVP; Site: right antecubital; rs5 13:01 Follow up: Response: No adverse reaction rs5 12:30 Drug: Magnesium Sulfate IVPB 2 grams IVPB once over 2 hrs Route: IVPB; Infused Over: 2 rs5 hrs; Site: right antecubital; 13:35 Follow up: Response: No adverse reaction; IV Status: Completed infusion rs5 Disposition Summary: 01/01/24 13:33 Discharge Ordered Notes: Location: Home rt Problem: new rt Symptoms: have improved rt Condition: Stable rt Diagnosis - Headache rt Followup: rt - With: Private Physician - When: 2 - 3 days - Reason: Discharge Instructions: - Discharge Summary Sheet rt - General Headache Without Cause rt Forms: - Medication Reconciliation Form rt - Antibiotic Education rt - Prescription Opioid Use rt - Patient Portal Instructions rt - Leadership Thank You Letter rt Signatures: Dispatcher [employer] Ravin Gage MD MD rt Brian Walker, RN RN rs5 Nya Walters RN RN tm6
[2024-01-01 13:57] VITALS: TEMP 97.3
[2024-01-01 14:03] VITALS: BP 137/76; O2SAT 99
--- NOTE | 2024-01-02 14:40 | EKG ---
Test Date: 2024-01-01 Test Time: 12:15:28 Content Management Consultant: ROSA MEASUREMENT RESULTS: Intervals: Rate: 70 SC: 146 QRSD: 78 QT: 418 QTc: 451 Bernie: P: 82 SC: 146 QRS: 16 T: 80 INTERPRETIVE STATEMENTS: Normal sinus rhythm Biatrial enlargement Abnormal ECG Compared to ECG 12/23/2023 18:43:41 No significant changes Electronically Signed On 01-02-24 14:38:39 CDT by Jw Riggins
== END 2024-01-01 13:48 | disposition home or self-care (01) ==
LOC: ER 11:36
DX: R51.9 Headache, unspecified (principal); H53.8 Other visual disturbances; I10 Essential (primary) hypertension; Z86.73 Personal history of transient ischemic attack (TIA), and cerebral infarction without residual deficits
CPT/HCPCS: 96365; 93005; 85025; 36415; 80053; 70450; 96375; 99284; J3475; J2765; J1200; J7030

== ENCOUNTER 2024-05-23 13:12 | Emergency (ER) | payer OTHER ==
[2024-05-23 14:34] LABS: SARS-CoV-2 Antigen CONTROL BLUE LINE VIS/BG OK; SARS-CoV-2 Antigen Rapid Res Negative (Negative)
[2024-05-23] MEDS ORDERED: AZITHROMYCIN 250 MG TAB ONE (14:35)
--- NOTE | 2024-05-23 14:57 | EDPHYS ---
Physician Documentation [facility] Name: Cathy Romero Age: 68 yrs Sex: Female : 1955 Arrival Date: 05/23/2024 Time: 13:12 Bed 12 Private MD: JOSLYN Physician Jorge Gandara HPI: 05/23 14:51 This 68 yrs old Female presents to ER via Ambulatory with complaints of jayce Cough, Congestion. 14:51 The patient or guardian reports cough, that is intermittent. Onset: The jayce symptoms/episode began/occurred 3 day(s) ago. Severity of symptoms: At their worst the symptoms were mild, in the emergency department the symptoms are unchanged. Modifying factors: The symptoms are alleviated by nothing, the symptoms are aggravated by damp environment. Associated signs and symptoms: Pertinent positives: rhinorrhea. The patient has experienced similar episodes in the past, a few times. Historical: - Allergies: 13:31 Codeine; ph - PMHx: 13:31 Anxiety; Cerebrovascular accident; Depression; Hypercholesterolemia; Hypertension; ph Transient cerebral ischemia; - PSHx: 13:31 Repair of inguinal hernia; ph - Immunization history:: Adult Immunizations unknown. - Infectious Disease History:: Denies. - Social history:: Smoking status: Patient denies any tobacco usage or history of. ROS: 14:53 Constitutional: Negative for fever, chills, and weight loss, Eyes: Negative for injury, jayce pain, redness, and discharge, ENT: Negative for injury, pain, and discharge, Neck: Negative for injury, pain, and swelling, Cardiovascular: Negative for chest pain, palpitations, and edema, Abdomen/GI: Negative for abdominal pain, nausea, vomiting, diarrhea, and constipation, Back: Negative for injury and pain, : Negative for injury, bleeding, discharge, and swelling, MS/Extremity: Negative for injury and deformity, Skin: Negative for injury, rash, and discoloration, Neuro: Negative for headache, weakness, numbness, tingling, and seizure, Psych: Negative for depression, anxiety, suicide ideation, homicidal ideation, and hallucinations, Allergy/Immunology: Negative for hives, rash, and allergies, Endocrine: Negative for neck swelling, polydipsia, polyuria, polyphagia, and marked weight changes, Hematologic/Lymphatic: Negative for swollen nodes, abnormal bleeding, and unusual bruising, 14:53 Respiratory: Positive for cough, with no reported sputum, Exam: 14:53 Constitutional: This is a well developed, well nourished patient who is awake, alert, jayce and in no acute distress. Head/Face: Normocephalic, atraumatic. Eyes: Pupils equal round and reactive to light, extra-ocular motions intact. Lids and lashes normal. Conjunctiva and sclera are non-icteric and not injected. Cornea within normal limits. Periorbital areas with no swelling, redness, or edema. ENT: Nares patent. No nasal discharge, no septal abnormalities noted. Tympanic membranes are normal and external auditory canals are clear. Oropharynx with no redness, swelling, or masses, exudates, or evidence of obstruction, uvula midline. Mucous membranes moist. Neck: Trachea midline, no thyromegaly or masses palpated, and no cervical lymphadenopathy. Supple, full range of motion without nuchal rigidity, or vertebral point tenderness. No Meningismus. Chest/axilla: Normal chest wall appearance and motion. Nontender with no deformity. No lesions are appreciated. Cardiovascular: Regular rate and rhythm with a normal S1 and S2. No gallops, murmurs, or rubs. Normal PMI, no JVD. No pulse deficits. Abdomen/GI: Soft, non-tender, with normal bowel sounds. No distension or tympany. No guarding or rebound. No evidence of tenderness throughout. Back: No spinal tenderness. No costovertebral tenderness. Full range of motion. Skin: Warm, dry with normal turgor. Normal color with no rashes, no lesions, and no evidence of cellulitis. MS/ Extremity: Pulses equal, no cyanosis. Neurovascular intact. Full, normal range of motion., bilateral aka Neuro: Awake and alert, GCS 15, oriented to person, place, time, and situation. Cranial nerves II-XII grossly intact. Motor strength 5/5 in all extremities. Sensory grossly intact. Cerebellar exam normal. Normal gait. Psych: Awake, alert, with orientation to person, place and time. Behavior, mood, and affect are within normal limits. 14:53 Respiratory: the patient does not display signs of respiratory distress, Respirations: normal, Breath sounds: are clear throughout, Respiratory rate: 18 14:53 Musculoskeletal/extremity: DVT Exam: No signs of deep vein thrombosis. no pain, no swelling, no tenderness, negative Homans' sign noted on exam, no appreciated bluish discoloration, no erythema, no increased warmth, Vital Signs: 13:27 BP 157 / 78; Pulse 91; Resp 18; Temp 98.6(O); Pulse Ox 97% on R/A; Weight 75.75 kg; ph Height 5 ft. 6 in. ; 15:37 BP 142 / 80; Pulse 88; Resp 16; Pulse Ox 98% on R/A; ko1 13:27 Body Mass Index 26.95 (75.75 kg, 167.64 cm) ph MDM: 13:36 Medical Screening Exam initiated jayce 14:55 Differential Diagnosis: Obstructed Airway Bronchitis Influenza Upper Respiratory jayce Infection Sinusitis Pharyngitis Asthma Exacerbation Viral Syndrome Pneumonia. Data reviewed: vital signs, nurses notes, lab test result(s), Flu: negative. Consideration of Admission/Observation Escalation of care including admission/observation considered. I considered the following discharge prescriptions or medication management in the emergency department Medications were administered in the Emergency Department. See MAR. Independent interpretation of the following test(s) in the Emergency Department X-Ray: My interpretation is cxr. Test considered but Not performed: Labs: no cbc. no comp met. Care significantly affected by the following chronic conditions: Hypertension, cva, anxiety, depression, high chlesterol. 05/23 13:37 Order name: Flu; Complete Time: 14:51 [facility] 05/23 13:37 Order name: SARS RAPID; Complete Time: 14:51 [facility] 05/23 13:37 Order name: Chest Pa And Lat (2 Views) XRAY [facility] 05/23 15:00 Order name: INCENTIVE SPIROMETRY jayce Administered Medications: 14:40 Drug: AZITHromycin PO 500 mg PO once Route: PO; ko1 15:14 Follow up: Response: No adverse reaction ko1 15:14 Drug: Albuterol Inhalation 2.5 mg Inhalation once Route: Inhalation; ko1 15:36 Follow up: Response: No adverse reaction ko1 15:36 Not Given (Patient Refused): [id number] mg PO once ko1 Disposition Summary: 05/23/24 14:57 Discharge Ordered Notes: Location: Home jayce Problem: new jacye Symptoms: have improved jayce Condition: Stable jayce Diagnosis - Cough jayce - Acute upper respiratory infection, unspecified jayce Followup: jayce - With: Private Physician - When: 2 - 3 days - Reason: Recheck today's complaints, Continuance of care, Re-evaluation by your physician Discharge Instructions: - Discharge Summary Sheet jayce - Atelectasis, Adult jayce - Cool Mist Vaporizer jayce - How to Use an Incentive Spirometer jayce - Upper Respiratory Infection, Adult, Pltr-ob-Scie jayce - Cough, Adult, [id number] jayce - Cough, Adult jayce - Incentive Spirometer Record [facility] Forms: - Medication Reconciliation Form jayce - Antibiotic Education jayce - Prescription Opioid Use jayce - Patient Portal Instructions [facility] - Leadership Thank You Letter [facility] Prescriptions: - albuterol sulfate 90 mcg/actuation Inhalation HFA Aerosol Inhaler - inhale 2 puff INHALATION route every 4 to 6 hours as needed for shortness of jayce breath or wheezing; 1 unit; Refills: 0, Product Selection Permitted - Tessalon Perles 100 mg Oral capsule - take 2 capsule ORAL route every 8 hours As needed; 30 capsule; Refills: 0, [facility] Product Selection Permitted - Medrol ([place]) 4 mg Oral Tablets, Dose Pack - take 1 tablet ORAL route as directed - follow package instructions; 1 packet; jayce Refills: 0, Product Selection Permitted - Zithromax 500 mg Oral Tablet - take 1 tablet ORAL route once daily for 5 days; 5 tablet; Refills: 0, Product [facility] Selection Permitted Signatures: Dispatcher [employer] Jorge Dubon MD MD cha Hall, Patricia, RN RN Swathi López RN RN ko1
--- NOTE | 2024-05-23 14:57 | ER ---
Nurse's Notes [facility] Name: Cathy Romero Age: 68 yrs Sex: Female : 1955 Arrival Date: 05/23/2024 Time: 13:12 Bed 12 Private MD: Diagnosis: Cough;Acute upper respiratory infection, unspecified Presentation: 05/23 13:27 Chief complaint: Patient states: Low grade fever and cough x 3 days. Coronavirus ph screen: Vaccine status: Patient reports being unvaccinated. Ebola Screen: No symptoms or risks identified at this time. Initial Sepsis Screen: Does the patient meet any 2 criteria? No. Patient's initial sepsis screen is negative. Does the patient have a suspected source of infection? No. Patient's initial sepsis screen is negative. Risk Assessment: Do you want to hurt yourself or someone else? Patient reports no desire to harm self or others. Onset of symptoms was May 23, 2024. 13:27 Method Of Arrival: Ambulatory 13:27 Acuity: JAVAD 3 ph Historical: - Allergies: 13:31 Codeine; ph - PMHx: 13:31 Anxiety; Cerebrovascular accident; Depression; Hypercholesterolemia; Hypertension; ph Transient cerebral ischemia; - PSHx: 13:31 Repair of inguinal hernia; ph - Immunization history:: Adult Immunizations unknown. - Infectious Disease History:: Denies. - Social history:: Smoking status: Patient denies any tobacco usage or history of. Screenin:05 [facility] ED Fall Risk Assessment (Adult) History of falling in the last 3 months, ph including since admission No falls in past 3 months (0 pts) Confusion or Disorientation No (0 pts) Intoxicated or Sedated No (0 pts) Impaired Gait No (0 pts) Mobility Assist Device Used No (0 pt) Altered Elimination No (0 pt) Score/Fall Risk Level 0 - 2 = Low Risk Oriented to surroundings, Maintained a safe environment, Hourly rounding (assess needs \T\ fall precautionary measures) done, Used ambulatory aids as needed (educated on \T\ assisted with). Abuse screen: Denies threats or abuse. Denies injuries from another. Nutritional screening: No deficits noted. Tuberculosis screening: No symptoms or risk factors identified. Assessment: 14:04 General: Appears in no apparent distress. comfortable, well groomed, Behavior is calm, ph cooperative, appropriate for age, Reports fever for 2-3 days. Pain: Denies pain. Neuro: Level of Consciousness is awake, alert, obeys commands, Oriented to person, place, time, situation. Cardiovascular: Capillary refill < 3 seconds in bilateral fingers Patient's skin is warm and dry. Respiratory: Reports cough that is Airway is patent Respiratory effort is even, unlabored, Respiratory pattern is regular, symmetrical, Breath sounds are coarse in mediastinum. Derm: Skin is pink, warm \T\ dry. Vital Signs: 13:27 BP 157 / 78; Pulse 91; Resp 18; Temp 98.6(O); Pulse Ox 97% on R/A; Weight 75.75 kg; ph Height 5 ft. 6 in. ; 15:37 BP 142 / 80; Pulse 88; Resp 16; Pulse Ox 98% on R/A; ko1 13:27 Body Mass Index 26.95 (75.75 kg, 167.64 cm) ph ED Course: 13:17 Patient arrived in ED. sj2 13:31 Triage completed. ph 13:31 Arm band placed on. ph 13:36 Jorge Gandara MD is Attending Physician. jayce 14:04 SARS RAPID Sent. ph 14:04 Flu Sent. ph 14:05 COVID swab sent to lab. Flu and/or RSV swab sent to lab. ph 14:06 Patient has correct armband on for positive identification. Bed in low position. Call ph light in reach. Side rails up X 1. Pulse ox on. NIBP on. Door closed. Noise minimized. Warm blanket given. 14:23 Swathi Cardenas, RN is Primary Nurse. ko1 14:40 Chest Pa And Lat (2 Views) XRAY In Process Unspecified. EDMS 15:07 INCENTIVE SPIROMETRY Sent. ko1 15:15 Provided Education on: meds, labs. ko1 15:15 No provider procedures requiring assistance completed. Initial Neb Treatment Given as ko1 ordered Patient was instructed and evaluated on procedure Patient tolerated procedure well without adverse effect. Patient did not have IV access during this emergency room visit. Administered Medications: 14:40 Drug: AZITHromycin PO 500 mg PO once Route: PO; ko1 15:14 Follow up: Response: No adverse reaction ko1 15:14 Drug: Albuterol Inhalation 2.5 mg Inhalation once Route: Inhalation; ko1 15:36 Follow up: Response: No adverse reaction ko1 15:36 Not Given (Patient Refused): [id number] mg PO once ko1 Medication: 14:06 VIS not applicable for this client. ph Outcome: 14:57 Discharge ordered by . jayce 15:37 Discharged to home ambulatory, ko1 15:37 Condition: stable 15:37 Discharge instructions given to patient, Instructed on discharge instructions, follow up and referral plans. medication usage, Demonstrated understanding of instructions, follow-up care, medications, Prescriptions given X 4, 15:37 Patient left the ED. ko1 Signatures: Dispatcher [employer] EDJorge Aaron MD MD cha Hall, Patricia, RN RN Swathi López RN RN ko1 Hernandez Sims2
--- NOTE | 2024-05-23 14:59 | RAD REPORT ---
EXAMINATION: TWO VIEW CHEST XR CLINICAL INDICATION: Female, 68 years old. [facility] MAIN COUGH Bed Name: [facility] TECHNIQUE: 2 view radiographs of the chest were performed. COMPARISON: 12/23/2023 FINDINGS: The lungs are well inflated and clear of new airspace opacification. Bibasilar reticular opacities, a nd small left basilar wedge-shaped opacity are stable, could reflect atelectatic changes or reactive airway changes. No pneumothorax or sizable effusion. The heart is normal in size. Mediastina l contours are unremarkable. IMPRESSION: Bibasilar atelectasis/fibrosis versus reactive airway changes. No evidence of focal pneumonia.
[2024-05-23] MEDS ORDERED: predniSONE 20 MG TAB ONE (15:09)
[2024-05-23] MEDS ORDERED: ALBUTEROL 2.5 MG/3 ML NEB SOL ONE (15:09)
[2024-05-23 15:42] VITALS: TEMP 98.6
[2024-05-23 15:43] VITALS: BP 142/80; O2SAT 98
== END 2024-05-23 15:37 | disposition home or self-care (01) ==
LOC: ER 13:12 → SUPCPDRO 13:12 → ER 15:37
DX: J06.9 Acute upper respiratory infection, unspecified (principal); R05.9 Cough, unspecified; I10 Essential (primary) hypertension; E78.00 Pure hypercholesterolemia, unspecified; Z11.52 Encounter for screening for COVID-19; Z86.73 Personal history of transient ischemic attack (TIA), and cerebral infarction without residual deficits
CPT/HCPCS: 36415; 87804 ×2; 71046; 94640; 99284; 87811; J7512; J7613

== ENCOUNTER 2024-12-15 19:56 | Observation (INO) | payer OTHER ==
[2024-12-15 20:31] LABS: Absolute Lymphocytes (CBC) 1.7 K/uL (0.7-4.9); Hematocrit 41.8 % (36.0-45.0); Hemoglobin 14.6 g/dL (12.0-15.0); MCH 31.1 pg (27.0-35.0); MCHC 34.8 g/dL (32.0-36.0); MCV 89.3 fL (80-100); MPV 7.8 fL (7.6-11.3); Nucleated RBC Absolute Count 0.0 (0-0); Nucleated Red Blood Cells % 0.0 % (0-0); RBC Red Blood Cell Count 4.68 M/uL (3.86-4.86); White Blood Count 5.70 thou/uL (4.3-10.9)
--- NOTE | 2024-12-15 20:41 | RAD REPORT ---
EXAMINATION: Ct Stroke Brain Wo Cont CLINICAL INDICATION: Female, 69 years old.STROKE ALERT TECHNIQUE: Axial CT images from the skull base to the vertex without intravenous contrast. Coronal an d sagittal reformatted images were created from the data set. One or more of the following dose reduction techniques were used: Automated exposure control, adjustment of the mA and/or kV according to patient size, and/or iterative reconstruction. Unless otherwise specified, incidental findings do not require dedicated imaging follow-up. [id number]. COMPARISON: No prior exams FINDINGS: INTRACRANIAL: No acute intracranial hemorrhage. No acute large vascular territory infarct. No hydroce phalus. No mass effect or midline shift. No significant white matter disease.Mild cerebral atrophy. VASCULATURE: No visualized abnormalities in the arteries or dural venous sinuses. SCALP/SKULL: No calvarial fracture identified. No acute soft tissue abnormality. SINUSES: The visualized paranasal sinuses are mostly clear. No significant mastoid fluid. IMPRESSION: No acute intracranial abnormality. The findings were communicated to Dr. Dianne Guthrie on 12/15/2024 8:38 PM.
[2024-12-15 20:43] LABS: PT Prothrombin Time 11.2 SECONDS (10-13.0); PTT, Activated Partial Thromb 31.9 SECONDS (27.2-37.4); Protime INR 0.99
--- NOTE | 2024-12-15 20:43 | RAD REPORT ---
EXAMINATION: Neck Angio CLINICAL INDICATION: Female, 69 years old. dizziness TECHNIQUE: Axial CT images were obtained from the aortic arch to the skull base after intravenous con trast utilizing angiographic protocol with 3D post-processing (maximum intensity projection images, volume rendered images and/or shaded surface rendered images). One or more of the following dose redu ction techniques were used: Automated exposure control, adjustment of the mA and/or kV according to patient size, and/or iterative reconstruction. Unless otherwise specified, incidental findings do not require dedicated imaging follow-up. [id number]. NASCET criteria used. Mild 0-49% stenosis Moderate 50-69% stenosis Severe 70-99% stenosis COMPARISON: 11/21/2024 FINDINGS: AORTA: Normal RIGHT: - CCA: No flow limiting stenosis (>= 50%). No dissection. - ICA: No flow limiting stenosis (>= 50%). No dissection. - ECA: No flow limiting stenosis (>= 50%). No dissection. LEFT: - CCA: No flow limiting stenosis (>= 50%). No dissection. - ICA: Atherosclerotic changes but no flow limiting stenosis. - ECA: No flow limiting stenosis (>= 50%). No dissection. VERTEBRAL: Patent SOFT TISSUE: No significant neck soft tissue abnormalities. The visualized lung apices are clear. 3D images confirm these findings. IMPRESSION: No arterial dissection or stenosis identified within the neck.
--- NOTE | 2024-12-15 20:44 | RAD REPORT ---
EXAMINATION: Head angio CLINICAL INDICATION: Female, 69 years old. DIZZINESS TECHNIQUE: Axial CT images were obtained through the head after intravenous contrast utilizing angiog raphic protocol with 3D post-processing (maximum intensity projection images, volume rendered images and/or shaded surface rendered images). One or more of the following dose reduction technique s were used: Automated exposure control, adjustment of the mA and/or kV according to patient size, and/or iterative reconstruction. Unless otherwise specified, incidental findings do not require dedic ated imaging follow-up. COMPARISON: No prior exam. FINDINGS: RIGHT: ICA: No aneurysm, stenosis, or dissection. MICAH: No aneurysm, stenosis, or dissection. MCA: No aneurysm, stenosis, or dissection. POLICE OFFICER CRIME PREVENTION: No aneurysm, stenosis, or dissection. LEFT: ICA: No aneurysm, stenosis, or dissection. MICAH: No aneurysm, stenosis, or dissection. MCA: No aneurysm, stenosis, or dissection. POLICE OFFICER CRIME PREVENTION: No aneurysm, stenosis, or dissection. Vertebrobasilar: The vertebral arteries are patent. The basilar artery is normal in appearance. 3D images confirm these findings. IMPRESSION: No occlusion, aneurysm, or hemodynamically significant stenosis identified.
[2024-12-15 20:52] LABS: Anion Gap 8.5 mEq/L (5.0-15.0); BUN Blood Urea Nitrogen 30.0 mg/dL (7-18); Glucose Level 124.0 mg/dL (74-106); Potassium 3.5 mEq/L (3.5-5.1); Troponin High Sensitivity 7.2 pg/mL (<58.9)
[2024-12-15] MEDS ORDERED: ASPIRIN 325 MG TAB ONE (21:05)
[2024-12-15] MEDS ORDERED: MECLIZINE HCL 12.5 MG TAB ONE (21:06)
[2024-12-15] MEDS ORDERED: FOLIC ACID 5 MG/ML VIAL ONE (21:07)
[2024-12-15] MEDS ORDERED: NA CHLORIDE 0.9% 500 ML ONE (21:07)
--- NOTE | 2024-12-15 21:08 | ER ---
Nurse's Notes [facility] Name: Cathy Romero Age: 69 yrs Sex: Female : 1955 Arrival Date: 12/15/2024 Time: 19:56 Bed 13 Private MD: Diagnosis: Dizziness and giddiness;Possible cerebral infarction Presentation: 12/15 20:00 Chief complaint: Patient states: BRAIN FOG, FEELING CONFUSED, FORGETFUL, AND DIZZINESS. ha1 SYMPTOMS STARTED AT 0230 TODAY. 20:00 Coronavirus screen: Client denies travel out of the [place] in the last 14 days. Ebola ha1 Screen: No symptoms or risks identified at this time. 20:00 Method Of Arrival: Ambulatory ha1 20:00 Acuity: JAVAD 2 ha1 20:00 Initial Sepsis Screen: Does the patient meet any 2 criteria? No. Patient's initial ha1 sepsis screen is negative. Does the patient have a suspected source of infection? No. Patient's initial sepsis screen is negative. Risk Assessment: Do you want to hurt yourself or someone else? Patient reports no desire to harm self or others. Onset of symptoms was December 15, 2024. 20:10 Pre-hospital glucose is not applicable to this patient. ha1 Triage Assessment: 20:00 General: Appears comfortable, Behavior is calm, cooperative. Pain: Denies pain. Neuro: ha1 Level of Consciousness is awake, alert, obeys commands, Oriented to person, place, time, situation, Reports dizziness, FORGETFULNESS. Cardiovascular: Capillary refill < 3 seconds Patient's skin is warm and dry. Respiratory: Airway is patent Respiratory effort is even, unlabored, Respiratory pattern is regular, symmetrical. 20:00 The onset of the patients symptoms was December 15, 2024 at 21:37. ha1 Stroke Activation: Physician: ED Attending; Name: ANG; Notified At: 20:05; Arrived At: Physician: Mid-Level Provider; Name: ; Notified At: 20:05; Arrived At: Physician: [not used]; Name: ; Notified At: ; Arrived At: Physician: [not used]; Name: ; Notified At: ; Arrived At: Physician: [not used]; Name: ; Notified At: ; Arrived At: Historical: - Allergies: 20:00 Codeine; ha1 - PMHx: 20:00 Anxiety; Cerebrovascular accident; Depression; Hypercholesterolemia; Hypertension; ha1 Transient cerebral ischemia; - PSHx: 20:00 Repair of inguinal hernia; ha1 - Immunization history:: Adult Immunizations up to date. - Infectious Disease History:: Denies. - Family history:: not pertinent. - Social history:: Smoking status: Patient denies any tobacco usage or history of. - Hospitalizations: : No recent hospitalization is reported. Screenin:05 [place] Swallow Protocol Exclusion Criteria: Unable to remain alert for testing: No Brief [facility] Cognitive Screen What is your name? Normal, Where are you right now? Normal, What year is it? Normal. Oral Mechanism Examination Facial Symmetry: Normal, Motion: Normal, Lip Closure: Normal, Oral Mechanism Result: Normal. 3 oz Water Swallow Challenge: Pt able to drink all water without stopping, coughing, choking or throat clearing: Yes Result: PASS MD Notified: Hugh Guthrie MD. 21:29 [facility] ED Fall Risk Assessment (Adult) History of falling in the last 3 months, ha1 including since admission No falls in past 3 months (0 pts) Confusion or Disorientation Yes (5 pts) Intoxicated or Sedated No (0 pts) Impaired Gait No (0 pts) Mobility Assist Device Used No (0 pt) Altered Elimination No (0 pt) Score/Fall Risk Level 0 - 2 = Low Risk Oriented to surroundings, Maintained a safe environment, Educated pt \\T\\ family on fall prevention, incl call for assistance when getting out of bed, Hourly rounding (assess needs \\T\\ fall precautionary measures) done. Abuse screen: Denies threats or abuse. Denies injuries from another. Nutritional screening: No deficits noted. Tuberculosis screening: No symptoms or risk factors identified. 22:43 [facility] ED Fall Risk Assessment (Adult) History of falling in the last 3 months, tb4 including since admission No falls in past 3 months (0 pts) Confusion or Disorientation No (0 pts) Intoxicated or Sedated No (0 pts) Impaired Gait No (0 pts) Mobility Assist Device Used No (0 pt) Altered Elimination No (0 pt) Score/Fall Risk Level 0 - 2 = Low Risk Oriented to surroundings, Maintained a safe environment. Abuse screen: Denies threats or abuse. Nutritional screening: No deficits noted. Tuberculosis screening: No symptoms or risk factors identified. Assessment: 20:00 VAN Scoring: Arm Drift: Patients demonstrates NO arm weakness. Patient is VAN Negative. ha1 Visual Disturbance: No visual disturbance noted. TNKase (Tenecteplase) Screening: Contraindications: Is the patient on Aspirin, Heparin, or Warfarin: Yes. 20:25 [place] Swallow Protocol Brief Cognitive Screen What is your name? Normal, Where are you ha1 right now? Normal, What year is it? Normal. Oral Mechanism Examination Facial Symmetry: Normal, 3 oz Water Swallow Challenge: Pt able to drink all water without stopping, coughing, choking or throat clearing: Yes Result: PASS MD Notified: Hugh Guthrie MD. 21:40 Reassessment: Patient and/or family updated on plan of care and expected duration. Pain ha1 level reassessed. Patient is alert, oriented x 3, equal unlabored respirations, skin warm/dry/pink. PATIENT STATES" MY SYMPTOMS HAVE GONE AWAY, I AM NOT DIZZY ANY MORE" Patient states feeling better. Patient states symptoms have improved. 22:40 Reassessment: Patient is alert and oriented x3, denies pain 0/10, vitals wnl, daughter tb4 at bedside Patient denies pain at this time. Patient states feeling better. General: Appears in no apparent distress. Behavior is calm, cooperative. Pain: Denies pain. Neuro: No deficits noted. Level of Consciousness is awake, alert, obeys commands, Oriented to person, place, time, situation, Intellectual Property Legal Assistant are equal bilaterally Moves all extremities. Full function Gait is steady, walked to the restroom unassisted. Speech is normal, Facial symmetry appears normal. Cardiovascular: Denies chest pain, fatigue, lightheadedness, shortness of breath, Capillary refill < 3 seconds is brisk in bilateral fingers. Respiratory: No deficits noted. Airway is patent Trachea midline Respiratory effort is even, unlabored, Respiratory pattern is regular, symmetrical. GI: No deficits noted. No signs and/or symptoms were reported involving the gastrointestinal system. : No deficits noted. No signs and/or symptoms were reported regarding the genitourinary system. EENT: No deficits noted. No signs and/or symptoms were reported regarding the EENT system. Musculoskeletal: No deficits noted. No signs and/or symptoms reported regarding the musculoskeletal system. Circulation, motion, and sensation intact. Capillary refill < 3 seconds, is brisk, in bilateral fingers. Range of motion: intact in all extremities. Vital Signs: 20:00 BP 146 / 66; Pulse 86; Resp 17 S; Temp 97.8(T); Pulse Ox 98% on R/A; Weight 77.11 kg; ha1 Height 5 ft. 6 in. 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 im 20:00 Patient has correct armband on for positive identification. Placed in gown. Bed in low ha1 position. Call light in reach. Side rails up X 1. Adult w/ patient. 20:00 Provided Education on: PLAN OF CARE . ha1 20:00 Arm band placed on right wrist. ha1 20:01 Hugh Guthrie MD is Attending Physician. rn 20:16 Kelsey Harrington, DANIEL is Primary Nurse. me1 20:25 EKG done, by filter changing technician. ts3 20:25 Inserted saline lock: 20 gauge in right antecubital area, using aseptic technique. ts3 Blood collected. Flushed with 10 mL NS. 20:26 Initial lab(s) drawn, by biological lab technician, sent to lab. ts3 20:34 CT Head Angio In Process Unspecified. EDMS 20:35 CT Neck Angio In Process Unspecified. EDMS 20:35 CT Stroke Brain w/o Contrast In Process Unspecified. EDMS 21:07 Louis Mercedes MD is Hospitalizing Provider. rn 21:30 Triage completed. ha1 21:31 Stroke CXR 1 View In Process Unspecified. EDMS 22:08 No provider procedures requiring assistance completed. me1 23:50 Patient admitted, IV remains in place. ha1 Administered Medications: 21:12 Drug: NS 0.9% IV 500 ml 500 ml IV at 1 bolus once; to be given as a bolus over 30 me1 minutes Volume: 500 ml; Route: IV; Rate: 1 bolus; Site: right antecubital; 22:09 Follow up: Response: No adverse reaction; IV Status: Completed infusion; IV Intake: me1 500ml 21:13 Drug: Meclizine PO 50 mg PO once Route: PO; me1 22:09 Follow up: Response: No adverse reaction; Marked relief of symptoms me1 21:13 Drug: Aspirin PO 325 mg PO once Route: PO; me1 22:09 Follow up: Response: No adverse reaction me1 21:13 Drug: foLIC Acid IVPB 1 mg IVPB once Route: IVPB; Site: left forearm; me1 22:08 Follow up: Response: No adverse reaction; IV Status: Completed infusion me1 Medication: 21:30 VIS not applicable for this client. ha1 Point of Care Testing: Blood Glucose: 20:10 Blood Glucose: 118 mg/dL; ha1 Ranges: Intake: 22:09 IV: 500ml; Total: 500ml. me1 22:43 PO: 240ml (Juice); Total: 740ml. tb4 Outcome: 21:07 Decision to Hospitalize by Provider. rn 23:50 Admitted to Med/surg accompanied by tech, via stretcher, room 211, with chart, ha1 23:50 Condition: stable 23:50 Instructed on the need for admit, Demonstrated understanding of instructions, 23:54 Patient left the ED. tb4 NIH Stroke Scale - NIH Stroke Score Date: 12/15/2024 Time: 20:00 Total Score = 0 10. Dysarthria (speech clarity - read or repeat words) - 0(Normal) 11. Extinction and Inattention (visual/tactile/auditory/spatial/personal) - 0(No abnormality) 1a. Level of Consciousness (LOC) - 0(Alert) 1b. Level of Consciousness (LOC) (Month \\T\\ Age) - 0(Both) 1c. LOC Commands (Open \\T\\ Closes Eyes/Fence Manufacture Supervisor) - 0(Both) 2. Best Gaze (Lateral Gaze Paresis) - 0(Normal) 3. Visual Field Loss - 0(No visual loss) 4. Facial Palsy - 0(Normal) 5a. Left Arm: Motor (10-second hold) - 0(No drift) 5b. Right Arm: Motor (10-second hold) - 0(No drift) 6a. Left Leg: Motor (5-second hold - always test supine) - 0(No drift) 6b. Right Leg: Motor (5-second hold - always test supine) - 0(No drift) 7. Limb Ataxia (finger/nose \\T\\ heel/montesinos - test with eyes open) - 0(Absent) 8. Sensory Loss (pinprick arms/legs/face) - 0(Normal) 9. Best Language: Aphasia (description/naming/reading) - 0(No aphasia) Initials: ha1 NIH Stroke Scale - NIH Stroke Score Date: 12/15/2024 Time: 21:29 Total Score = 0 10. Dysarthria (speech clarity - read or repeat words) - 0(Normal) 11. Extinction and Inattention (visual/tactile/auditory/spatial/personal) - 0(No abnormality) 1a. Level of Consciousness (LOC) - 0(Alert) 1b. Level of Consciousness (LOC) (Month \\T\\ Age) - 0(Both) 1c. LOC Commands (Open \\T\\ Closes Eyes/Fence Manufacture Supervisor) - 0(Both) 2. Best Gaze (Lateral Gaze Paresis) - 0(Normal) 3. Visual Field Loss - 0(No visual loss) 4. Facial Palsy - 0(Normal) 5a. Left Arm: Motor (10-second hold) - 0(No drift) 5b. Right Arm: Motor (10-second hold) - 0(No drift) 6a. Left Leg: Motor (5-second hold - always test supine) - 0(No drift) 6b. Right Leg: Motor (5-second hold - always test supine) - 0(No drift) 7. Limb Ataxia (finger/nose \\T\\ heel/montesinos - test with eyes open) - 0(Absent) 8. Sensory Loss (pinprick arms/legs/face) - 0(Normal) 9. Best Language: Aphasia (description/naming/reading) - 0(No aphasia) Initials: rn Signatures: Dispatcher [employer] EDMS Hugh Guthrie MD MD rn Ayala, Heidy, RN RN ha1 Cristin Mackey Michelle RN RN me1 Claudine Higgins RN RN tb4 Diallo, Arianne ts3
--- NOTE | 2024-12-15 21:08 | EDPHYS ---
Physician Documentation [facility] Name: Cathy Roemro Age: 69 yrs Sex: Female : 1955 Arrival Date: 12/15/2024 Time: 19:56 Bed 13 Private MD: ED Physician Hugh Guthrie HPI: 12/15 20:22 This 69 yrs old Female presents to ER via Unassigned with complaints of Dizziness. rn 20:22 Patient reports was at work when he started to feel dizzy. Reports onset at 2:30 PM rn today. No preceding injury or trauma. Reports difficulty walking and slow thought process. No focal weakness or numbness. No vision changes. No speech changes. Patient took some anxiety medicine and made the dizziness a little better. Has had a cerebellar stroke in the past and multiple TIAs, takes Plavix.. Historical: - Allergies: 20:00 Codeine; ha1 - PMHx: 20:00 Anxiety; Cerebrovascular accident; Depression; Hypercholesterolemia; Hypertension; ha1 Transient cerebral ischemia; - PSHx: 20:00 Repair of inguinal hernia; ha1 - Immunization history:: Adult Immunizations up to date. - Infectious Disease History:: Denies. - Family history:: not pertinent. - Social history:: Smoking status: Patient denies any tobacco usage or history of. - Hospitalizations: : No recent hospitalization is reported. ROS: 20:22 Constitutional: Negative for fever, chills, and weight loss, Neck: Negative for injury, rn pain, and swelling, Cardiovascular: Negative for chest pain, palpitations, and edema, Respiratory: Negative for shortness of breath, cough, wheezing, and pleuritic chest pain, Abdomen/GI: Negative for abdominal pain, nausea, vomiting, diarrhea, and constipation, MS/Extremity: Negative for injury and deformity, Skin: Negative for injury, rash, and discoloration, Neuro: Negative for headache, negative for focal weakness or numbness. Positive for dizziness Exam: 20:22 Constitutional: This is a well developed, well nourished patient who is awake, alert, rn and in no acute distress. Head/Face: Normocephalic, atraumatic. Eyes: Pupils equal round and reactive to light, extra-ocular motions intact. Lids and lashes normal. Conjunctiva and sclera are non-icteric and not injected. Cornea within normal limits. Periorbital areas with no swelling, redness, or edema. Cardiovascular: Regular rate and rhythm . No pulse deficits. Respiratory: No increased work of breathing, no retractions or nasal flaring. MS/ Extremity: Pulses equal, no cyanosis. Neurovascular intact. Full, normal range of motion. Equal circumference. Neuro: Awake and alert, GCS 15, oriented to person, place, time, and situation. Cranial nerves II-XII grossly intact. Motor strength 5/5 in all extremities. Sensory grossly intact. 20:29 ECG was reviewed by the Attending Physician. rn Vital Signs: 20:00 BP 146 / 66; Pulse 86; Resp 17 S; Temp 97.8(T); Pulse Ox 98% on R/A; Weight 77.11 kg; ha1 Height 5 ft. 6 in. ; Pain 0/10; 21:10 BP 146 / 84; Pulse 78; Resp 18 S; Pulse Ox 97% on R/A; ha1 21:40 BP 143 / 93; Pulse 81; Resp 17; Pulse Ox 98% ; me1 22:43 BP 140 / 77; Pulse 81; Resp 20; Pulse Ox 99% on R/A; Pain 0/10; tb4 20:00 Body Mass Index 27.44 (77.11 kg, 167.64 cm) ha1 20:00 Pain Scale: Adult ha1 22:43 Pain Scale: Adult tb4 NIH Stroke Scale Scores: 20:00 NIHSS Score: 0 ha1 21:29 NIHSS Score: 0 rn MDM: 20:01 Medical Screening Exam initiated rn 20:57 Differential diagnosis: cardiac arrhythmia, CVA, generalized weakness, hypovolemia, rn idiopathic dizziness, TIA, vertigo. 21:05 Data reviewed: vital signs, nurses notes, lab test result(s), radiologic studies, CT rn scan, and as a result, I will admit patient. Independent interpretation of the following test(s) in the Emergency Department EKG: See my EKG interpretation above CT Scan: My interpretation is CT head images negative for hemorrhage per my interpretation. leaf sorter: rate is 85 beats/min, Rhythm is normal sinus rhythm, regular, with no ectopy, Interpretation: normal rate, normal rhythm. Discussion of test interpretation with radiology: I had a discussion with radiology regarding a test interpretation. Discussed CT results with radiologist, no acute findings in CT head. Test considered but Not performed: MRI: MRI brain not available. Care significantly affected by the following chronic conditions: Hypertension, Stroke. Counseling: I had a detailed discussion with the patient and/or guardian regarding the historical points, exam findings, and any diagnostic results supporting the discharge/admit diagnosis, lab results, radiology results, the need for further work-up and treatment in the hospital. Response to treatment: the patient's symptoms have mildly improved after treatment, and as a result, I will admit patient. 21:33 Management of patient was discussed with the following: Primary Care Provider: rn Discussed case with Dr. Mercedes, will admit patient here as NIH is [address] angiograms negative. No indication for transfer at this time.. 21:52 ED course: Dizziness now resolved. 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 Perhaps a TIA if symptoms have resolved. 12/15 20:01 Order name: Basic Metabolic Panel; Complete Time: 20:56 12/15 20:01 Order name: CBC with Diff; Complete Time: 20:45 12/15 20:01 Order name: High Sensitivity Troponin; Complete Time: 20:56 12/15 20:01 Order name: Protime (+inr); Complete Time: 20:45 12/15 20:01 Order name: Ptt, Activated; Complete Time: 20:45 12/15 20:33 Order name: Glucose, Ancillary Testing; Complete Time: 20:45 EDOR 12/15 20:01 Order name: CT Head Angio; Complete Time: 20:45 12/15 20:01 Order name: CT Neck Angio; Complete Time: 20:45 12/15 20:01 Order name: CT Stroke Brain w/o Contrast; Complete Time: 20:45 12/15 20:01 Order name: Stroke CXR 1 View; Complete Time: 21:47 rn 12/15 20:01 Order name: Accucheck; Complete Time: 20:25 rn 12/15 20:01 Order name: Cardiac monitoring; Complete Time: 20:25 12/15 20:01 Order name: EKG - Nurse/Tech; Complete Time: 20:25 12/15 20:01 Order name: IV Saline Lock; Complete Time: 20:25 12/15 20:01 Order name: Labs collected and sent; Complete Time: 20:25 rn 12/15 20:01 Order name: NPO; Complete Time: 20:43 rn 12/15 20: Order name: O2 Per Protocol; Complete Time: 20:17 rn 12/15 20: Order name: O2 Sat Monitoring; Complete Time: 20:17 rn 12/15 20: Order name: Stroke Swallow Screen; Complete Time: 21:13 rn EC:29 Rate is 76 beats/min. Rhythm is regular. QRS [place] is Normal. MS interval is normal. QRS rn interval is normal. QT interval is normal. No Q waves. T waves are Normal. No ST changes noted. Clinical impression: NSR w/ Non-specific ST/T Changes. Interpreted by me. Reviewed by me. Administered Medications: 21:12 Drug: NS 0.9% IV 500 ml 500 ml IV at 1 bolus once; to be given as a bolus over 30 me1 minutes Volume: 500 ml; Route: IV; Rate: 1 bolus; Site: right antecubital; 22:09 Follow up: Response: No adverse reaction; IV Status: Completed infusion; IV Intake: me1 500ml 21:13 Drug: Meclizine PO 50 mg PO once Route: PO; me1 22:09 Follow up: Response: No adverse reaction; Marked relief of symptoms me1 21:13 Drug: Aspirin PO 325 mg PO once Route: PO; me1 22:09 Follow up: Response: No adverse reaction me1 21:13 Drug: foLIC Acid IVPB 1 mg IVPB once Route: IVPB; Site: left forearm; me1 22:08 Follow up: Response: No adverse reaction; IV Status: Completed infusion me1 Point of Care Testing: Blood Glucose: 20:10 Blood Glucose: 118 mg/dL; ha1 Ranges: Critical Glucose Levels:Adult <50 mg/dl or >400 mg/dl <40 mg/dl or >180 mg/dl Disposition Summary: 12/15/24 21:07 Hospitalization Ordered Notes: Hospitalization Status: Inpatient Admission rn Provider: Louis Mercedes rn [facility] rn Condition: Stable rn Problem: new rn Symptoms: have improved rn Bed/Room Type: Standard rn Room Assignment: 211(12/15/24 21:34) vk Diagnosis - Dizziness and giddiness rn - Possible cerebral infarction rn Forms: - Medication Reconciliation Form rn - SBAR form rn - Leadership Thank You Letter rn NIH Stroke Scale - NIH Stroke Score Date: 12/15/2024 Time: 20:00 Total Score = 0 10. Dysarthria (speech clarity - read or repeat words) - 0(Normal) 11. Extinction and Inattention (visual/tactile/auditory/spatial/personal) - 0(No abnormality) 1a. Level of Consciousness (LOC) - 0(Alert) 1b. Level of Consciousness (LOC) (Month \T\ Age) - 0(Both) 1c. LOC Commands (Open \T\ Closes Eyes/Tail Sawyer) - 0(Both) 2. Best Gaze (Lateral Gaze Paresis) - 0(Normal) 3. Visual Field Loss - 0(No visual loss) 4. Facial Palsy - 0(Normal) 5a. Left Arm: Motor (10-second hold) - 0(No drift) 5b. Right Arm: Motor (10-second hold) - 0(No drift) 6a. Left Leg: Motor (5-second hold - always test supine) - 0(No drift) 6b. Right Leg: Motor (5-second hold - always test supine) - 0(No drift) 7. Limb Ataxia (finger/nose \T\ heel/montesinos - test with eyes open) - 0(Absent) 8. Sensory Loss (pinprick arms/legs/face) - 0(Normal) 9. Best Language: Aphasia (description/naming/reading) - 0(No aphasia) Initials: ha1 NIH Stroke Scale - NIH Stroke Score Date: 12/15/2024 Time: 21:29 Total Score = 0 10. Dysarthria (speech clarity - read or repeat words) - 0(Normal) 11. Extinction and Inattention (visual/tactile/auditory/spatial/personal) - 0(No abnormality) 1a. Level of Consciousness (LOC) - 0(Alert) 1b. Level of Consciousness (LOC) (Month \T\ Age) - 0(Both) 1c. LOC Commands (Open \T\ Closes Eyes/Tail Sawyer) - 0(Both) 2. Best Gaze (Lateral Gaze Paresis) - 0(Normal) 3. Visual Field Loss - 0(No visual loss) 4. Facial Palsy - 0(Normal) 5a. Left Arm: Motor (10-second hold) - 0(No drift) 5b. Right Arm: Motor (10-second hold) - 0(No drift) 6a. Left Leg: Motor (5-second hold - always test supine) - 0(No drift) 6b. Right Leg: Motor (5-second hold - always test supine) - 0(No drift) 7. Limb Ataxia (finger/nose \T\ heel/montesinos - test with eyes open) - 0(Absent) 8. Sensory Loss (pinprick arms/legs/face) - 0(Normal) 9. Best Language: Aphasia (description/naming/reading) - 0(No aphasia) Initials: rn Signatures: Dispatcher [employer] EDMS Hugh Guthrie MD MD rn Ayala, Heidy RN RN ha1 Kelsey Harrington RN RN me1 Cheryl Grier Corrections: (The following items were deleted from the chart) 20:02 20:02 Head Angio+CT.RAD.BRZ ordered. EDMS EDMS 20:02 20:02 Chest Single View+RAD.RAD.BRZ ordered. EDMS EDMS 21:34 21:07 sania moore
--- NOTE | 2024-12-15 21:42 | RAD REPORT ---
EXAM: Chest Single View HISTORY: 69 years Female dizziness COMPARISON: 11/09/2024 FINDINGS: LUNGS/PLEURA: The lungs are clear. No pleural effusions or pneumothorax. No pulmonary edema. CARDIAC/MEDIASTINUM: Mild cardiomegaly UPPER ABDOMEN: No significant abnormality. BONES: No acute abnormality. LINES/TUBES/OTHER: N/A IMPRESSION: No evidence of acute cardiopulmonary disease.
[2024-12-16 00:47] VITALS: O2SAT 99
[2024-12-16 05:54] LABS: HDL Cholesterol 79.0 mg/dL (40-60); LDL Cholesterol, Calculated 63.0 mg/dL (<130); LDL Cholesterol,Calc NonReport 63.0
[2024-12-16 06:20] VITALS: BMI 27.4
[2024-12-16] MEDS: ASPIRIN EC 81 MG TAB PO SCH (09:59)
[2024-12-16] MEDS: CLOPIDOGREL 75 MG TABLET PO SCH (10:00)
[2024-12-16 12:09] VITALS: BP 135/66; TEMP 97.8
--- NOTE | 2024-12-16 13:06 | P.SSS ---
Patient History Date of Service: 12/16/24 Reason for admission: DIZZY, CONFUSION. History of Present Illness: DANIEL HAD EPISODE OF DIZZINES AND CONFUSION FOR A DAY. SHE REPORTS TO ER. CT NEG BRAIN. MRI DONE TODAY. I CALLED DR. FELIZ TO GET REPORT NO STROKE. Allergies No Known Drug Allergies Allergy (Verified 05/06/14 21:55) Unknown Home medications list reviewed: Yes Home Medications: Buproprion S.r. [Wellbutrin Sr*] 100 mg PO DAILY 05/06/14 Sertraline [Zoloft*] 50 mg PO DAILY 05/06/14 clonazePAM [Klonopin] 0.5 mg PO DAILY 05/06/14 Aspirin [Ecotrin 81 MG] 162 mg PO DAILY #30 tablet. 05/07/14 Amlodipine Besylate [Norvasc] 1 tab PO DAILY 07/28/14 Cyanocobalamin (Vitamin B-12) [Vitamin B-12] 1 ml INJ EVERY 7TH DAY 07/28/14 Metoprolol Succinate [Toprol Xl*] 1 tab PO DAILY 07/28/14 - Past Medical/Surgical History Has patient received pneumonia vaccine in the past: Yes Diabetic: No -: anxiety -: depression -: bl benighn cyst of brest -: htn -: hld -: bl lumpectomy -: hernia repair - Family History Father -: Hypertension Notes: Pt had previous CVA, TIA, HTN - Social History Smoking Status: Never smoker Alcohol use: No CD- Drugs: No Caffeine use: Yes Review of Systems 10-point ROS is otherwise unremarkable Physical Examination - Vital Signs Temperature: 97.8 F Blood Pressure: 135/66 Pulse: 78 Respirations: 18 Pulse Ox (%): 97 - Physical Exam General: Alert, In no apparent distress HEENT: Atraumatic, PERRLA, Mucous membr. moist/pink, EOMI, Sclerae nonicteric Neck: Supple, 2+ carotid pulse no bruit, No LAD, Without JVD or thyroid abnormality Respiratory: Clear to auscultation bilaterally, Normal air movement Cardiovascular: Regular rate/rhythm, Normal S1 S2 Gastrointestinal: Normal bowel sounds, No tenderness Musculoskeletal: No tenderness Integumentary: No rashes Neurological: Normal gait, Normal speech, Normal strength at 5/5 x4 extr, Normal tone, Normal affect Lymphatics: No axilla or inguinal lymphadenopathy - Studies Laboratory Data (last 24 hrs) 12/15/24 12/15/24 12/15/24 20:20 20:20 20:20 WBC 5.70 Hgb 14.6 Hct 41.8 Plt Count 209 PT 11.2 INR 0.99 APTT 31.9 Sodium 142 Potassium 3.5 BUN 30 H Creatinine 1.07 H Glucose 124 H - Diagnosis (Problem(s)) (1) Vertiginous syndrome Current Visit: Yes Status: Acute Plan: MOST LIKELY NON NEUROLOGICAL. MRI NEG. SHE IS STABLE. I WILL DC HER HOME. FU IN OFFICE. - Disposition Disposition: ROUTINE DISCHARGE
--- NOTE | 2024-12-16 13:09 | RAD REPORT ---
EXAMINATION: MRI BRAIN WITHOUT CONTRAST CLINICAL INDICATION: Possible CVA TECHNIQUE: Multiplanar multisequence MR images of the brain were obtained without intravenous contras t. Unless otherwise specified, incidental findings do not require dedicated imaging follow-up. COMPARISON: 11/09/2024 FINDINGS: INTRACRANIAL: Diffusion-weighted images show no acute or early subacute infarction. There is mild bra in atrophy with mildT2/FLAIR hyperintensities in the periventricular and deep white matter regions, likely representing chronic microvascular ischemic changes. There is no mass effect or midline shift. No abnormal extraaxial fluid collection. VASCULATURE: Normal signal voids in the larger intracranial arteries and dural venous sinuses. SINUSES: The paranasal sinuses and mastoid air cells are predominantly clear. BONE: The marrow signal pattern is within normal limits. IMPRESSION: Negative for acutre CVA or other acute intracranial finding. The findings were communicated with Louis Mercedes MD at 12/16/2024 1:06 PM by telephone.
== END 2024-12-16 14:25 | disposition home or self-care (01) ==
LOC: ER 19:56 → 2ND 21:28
PROVIDERS: ADMIT Internal Medicine; ATTEND Internal Medicine
DX: H81.90 Unspecified disorder of vestibular function, unspecified ear (principal); R41.0 Disorientation, unspecified; F41.9 Anxiety disorder, unspecified; F32.A Depression, unspecified; E78.00 Pure hypercholesterolemia, unspecified; I10 Essential (primary) hypertension; Z86.73 Personal history of transient ischemic attack (TIA), and cerebral infarction without residual deficits
CPT/HCPCS: 96365; 93005; 85025; 80048; 36415; 85610; 80061; 82947; 85730; 84484; 70496; 70498; 70450; 71045; 70551; 99285; Q9967; J8597; J7040; G0378 ×3